=== PATIENT | male | born 1960 | race Two or more races ===

== ENCOUNTER 2018-11-28 08:17 | Inpatient (IN) | payer MEDICAID ==
[~2018-11-28] VITALS: Ht 170.2 cm; Wt 83.5 kg
[2018-11-28 09:01] LABS: Basophils # (auto) 0 uL; Eosinophils # (auto) 0.1 uL; Lymphocytes # (auto) 0.7 uL; Monocytes # (auto) 0.4 uL
[2018-11-28 09:14] LABS: INR 1.1 (0.9-1.15); Partial Thromboplastin Time 22.8 sec (23.64-32.05); Prothrombin Time 11.8 sec (9.06-12.60)
[2018-11-28 09:22] LABS: Albumin 2.8 g/dL (3.4-5.0); Calcium 7.5 mg/dL (8.5-10.1); Potassium 4.8 mmol/L (3.5-5.1)
[2018-11-28 09:23] LABS: Basophils % (auto) 0.5 % (0.0-2.0); Eosinophils % (auto) 2.4 % (0.0-7.0); Hematocrit 25.7 % (41.0-53.0); Hemoglobin 7.6 g/dL (13.5-17.5); Lymphocytes % (auto) 14.3 % (10.0-50.0); Mean Corpuscular Hgb Conc. 29.4 g/dL (32.0-36.0); Mean Corpuscular Volume 64.8 fL (80.0-100.0); Monocytes % (auto) 8.5 % (0.0-12.0); Neutrophils # (auto) 3.9 uL; Neutrophils % (auto) 74.3 % (37.0-80.0); Nucleated Red Blood Cells % 0.1 %; Platelet Count (auto) 62 10^3/uL (140-450); Red Blood Cells 3.97 10^6/uL (4.5-5.90); White Blood Cell 5.2 10^3/uL (4.4-10.8)
[2018-11-28 09:24] LABS: BUN/Creatinine Ratio 21.8
[2018-11-28 09:29] LABS: Bilirubin, Total 0.4 mg/dL (0.2-1.0)
[2018-11-28] MEDS ORDERED: PANTOPRAZOLE 40 MG/10 ML VIAL INJ IV ONE (11:00)
[2018-11-28] MEDS ORDERED: MORPHINE SULF INJ 2 MG/ML SYRINGE 1ML IV PRN (11:45)
[2018-11-28] MEDS ORDERED: HYDROcodone-ACET 5/325MG TAB PO PRN (11:45)
[2018-11-28] MEDS ORDERED: PANTOPRAZOLE 40 MG TAB PO ONE ×2 (11:45→22:00)
[2018-11-28] MEDS ORDERED: DEXTROSE (50%) 50ML SYRG IV PRN ×2 (11:45)
[2018-11-28] MEDS ORDERED: cefTRIAXone 1GM/50ML D5W 50 ML IV ONE (11:45)
[2018-11-28] MEDS ORDERED: FERROUS SULFATE 325 MG TAB PO ONE (11:45)
[2018-11-28] MEDS ORDERED: NITROGLYCERIN 0.4 MG SL TAB SL PRN (11:45)
[2018-11-28] MEDS ORDERED: ACCU-CHEK COMFORT CURVE STRIP VI SCH (12:00)
[2018-11-28] MEDS ORDERED: InsuLIN REG 1unit/0.01ml Soln (100units/ml) SC SCH (12:00)
[2018-11-28] MEDS: SODIUM CHLORIDE 0.9% 1,000 ML IV SCH ×2 (12:06→23:03)
[2018-11-28] MEDS: InsuLIN REG 1unit/0.01ml Soln (100units/ml) SC SCH ×3 (12:15→21:53)
[2018-11-28 12:28] LABS: Urine Bacteria NONE SEEN /hpf (None Seen); Urine Blood Negative /uL (Negative); Urine Specific Gravity 1.013 (1.001-1.035); Urine WBC <1 /hpf (0 - 3)
[2018-11-28 12:41] LABS: Alcohol, Urine < 3.0 mg/dL (0-5); Amphetamine Screen, Urine NEGATIVE (NEGATIVE); Barbiturate Scree,Urine NEGATIVE (NEGATIVE); Benzodiazephine Screen, Urine NEGATIVE (NEGATIVE); Cannabinoid Screen, Urine NEGATIVE (NEGATIVE); Cocaine Screen, Urine NEGATIVE (NEGATIVE); Opiate Scree,Urine NEGATIVE (NEGATIVE); Phencyclidine Screen, Urine NEGATIVE (NEGATIVE)
[2018-11-28] MEDS ORDERED: OCTREOTIDE ACETATE 100 MCG in SODIUM CHL 0.9% 50 ML IV ONE (13:15)
[2018-11-28] MEDS ORDERED: diphenhdrAMINE HCL 50 MG/1 ML VL ONE (13:36)
[2018-11-28] MEDS ORDERED: SODIUM CHLORIDE LOCK 10 ML ONE (13:36)
[2018-11-28] MEDS ORDERED: LIDOCAINE VISCOUS 2% 15ML UD ONE (13:36)
[2018-11-28] MEDS: fentaNYL CITRATE 100 MCG/2 ML VL ONE ×2 (13:45→13:49)
[2018-11-28] MEDS: MIDAZOLAM HCL 5 MG/ML-1ML VIAL ONE ×2 (13:45→13:49)
[2018-11-28 14:47] VITALS: BP 97/61
--- NOTE | 2018-11-28 14:55 | NUR ---
PT ADMITTE TO FLOOR VIA BED AND STAFF FROM POST OP NO DISTRESS NOTED. VITALS:98.0, HR 82, RR 16, 02 97, BP 92/60. PT REPORTS NO SOB. PT ORIENTED TO CALL LIGHT AND UNIT.
--- NOTE | 2018-11-28 14:57 | NUR ---
PT HAS GI BLEED, MODERATE AMOUNT OF BLOOD AND STOOL NOTED ON CHUCKS. POST OP NURSE PRESENT ANDND SAW BLOOD, SHE REPORTS SHE WILL REPORT GI BLEED TO DR KNOX. CALLED DR REEVES AND LEFT MESSAGE REPORTING PT HAS A GI BLEED, WILL CONTINUE TO MONITOR.
[2018-11-28 15:00] VITALS: BP 97/61
--- NOTE | 2018-11-28 15:03 | NUR ---
DR REEVES AT NURSING STATION, NOTIFIED PT HGB 7.6 AND PT HAS MODERATE AMOUNT OF LIQUID BLOODY STOOL COME OUT OF ANUS. DR REEVES AWARE. NEW ORDERS FOR REPEAT H AND H AT 5. IF HEMOGLOBIN BELOW 7, TRANSFUSE [address] KNOX, NOTIFIED PT HAS A GI BLEED. AWARE, ORDERS TO MONITOR FOR NOW.
[2018-11-28] MEDS ORDERED: SODIUM CHLORIDE 0.9% 2,000 ML IV ONE (15:15)
--- NOTE | 2018-11-28 15:16 | NUR ---
CHEYANNE REPORTS BP 92/60, DR REEVES NOTIFIED, NEW ORDERS FOR 2 LITER BOLUS.
--- NOTE | 2018-11-28 15:20 | NUR ---
PT IV WILL NOT FLUSH. DC'D IV. ATTEMPTED NEW IV USING STERILE TECHNIQUE TWICE. UNABLE TO GAIN ACCESS, WILL ASK ANOTHER NURSE. PT TOLERATED PROCEDURE WELL.
--- NOTE | 2018-11-28 17:00 | NUR ---
NEW IV INSERTED, LFA 20 GAUGE PLACED BY NURSE PABLITO LOZANO TOLERATED PROCEDURE WELL. WILL GIVE 2 L 0.9 NS BOLUS AND SANDOSTATIN.
--- NOTE | 2018-11-28 17:03 | NUR ---
CALLED [facility] PT REPORTS HE IS MISSING A WHITE BAG WITH HIS PHONE AND CLOTHES. [facility] REPORTS THEY TRANSFERRED PATIENT TO [facility] WITH ALL HIS BELONGINGS. CALLED [facility], NO ANSWER, LEFT MESSAGE REQUESTING PT BELONGINGS.
[2018-11-28 17:27] VITALS: BP_SYST 106; BP_SYST 92; BP_SYST 98; BP_DIAS 60; BP_DIAS 63; BP_DIAS 68
--- NOTE | 2018-11-28 18:00 | NUR ---
ORTHOSTATIC VITAL LAYING: HR 82, BP 111/74, 02 96 SITTING: HR 103, BP 126/72, 02 97 STANDING: HR 98, BP 115/69, 02 98 Addendum: 11/28/18 at 1950 by CHUCKY GALLEGOS RN NEW HGB 7.3 FROM 7.6, NIGHT NURSE AWARE TO MONITOR.
[2018-11-28] MEDS: ESOMEPRAZOLE 40 MG/5ml VIAL INJ IV SCH ×2 (18:23→21:52)
[2018-11-28] MEDS: ACCU-CHEK COMFORT CURVE STRIP VI SCH ×2 (18:24→21:52)
[2018-11-28 18:39] LABS: Hemoglobin 7.3 g/dL (13.5-17.5)
[2018-11-28 18:45] LABS: Hematocrit 24.3 % (41.0-53.0)
--- NOTE | 2018-11-28 19:20 | NUR ---
Opening Shift Note Received report from alo Burger RN. Assumed care of patient, alert and awake. No S/S of distress/SOB or pain. Instructed on POC and to call for assist PRN, will continue to monitor for changes Q1hr and PRN. Bed placed in lowest position, bed alarm turned on and call light within reach.
[2018-11-28 20:00] VITALS: BP 116/65
[2018-11-28] MEDS: OCTREOTIDE ACETATE 500 MCG in SODIUM CHL 0.9% 99 ML IV SCH ×2 (20:30→23:09)
[2018-11-28 21:30] VITALS: BP 116/65
[2018-11-29] VITALS (13 sets, daily range): BP systolic 95–131; BP diastolic 56–77
[2018-11-29 05:07] LABS: Basophils # (auto) 0 uL; Basophils % (auto) 1.1 % (0.0-2.0); Eosinophils # (auto) 0.2 uL; Eosinophils % (auto) 3.5 % (0.0-7.0); Hematocrit 24.3 % (41.0-53.0); Lymphocytes # (auto) 0.9 uL; Lymphocytes % (auto) 19.2 % (10.0-50.0); Mean Corpuscular Hemoglobin 18.7 pg (28.0-32.0); Mean Corpuscular Hgb Conc. 28.5 g/dL (32.0-36.0); Mean Corpuscular Volume 65.7 fL (80.0-100.0); Monocytes # (auto) 0.3 uL; Neutrophils # (auto) 3.1 uL; Neutrophils % (auto) 69.2 % (37.0-80.0); Nucleated Red Blood Cells % 0.1 %; Platelet Count (auto) 47 10^3/uL (140-450); White Blood Cell 4.5 10^3/uL (4.4-10.8)
[2018-11-29 05:08] LABS: Red Cell Distribution Width 22.9 % (11.8-14.3)
--- NOTE | 2018-11-29 05:19 | NUR ---
Critical Lab value Dr Jimenez paged and notified via [employer] regarding patient's critical lab value of hemoglobin of 7.0. Awaiting call back.
[2018-11-29 05:26] LABS: Albumin 3.1 g/dL (3.4-5.0); BUN/Creatinine Ratio 24.4; Calcium 7.7 mg/dL (8.5-10.1)
[2018-11-29 05:29] LABS: Bilirubin, Total 0.3 mg/dL (0.2-1.0); Total Protein 6.6 g/dL (6.4-8.2)
[2018-11-29] MEDS: SODIUM CHLORIDE 0.9% 1,000 ML IV SCH (05:56)
[2018-11-29] MEDS: ACCU-CHEK COMFORT CURVE STRIP VI SCH ×4 (06:16→22:47)
[2018-11-29] MEDS: InsuLIN REG 1unit/0.01ml Soln (100units/ml) SC SCH ×4 (06:51→22:00)
--- NOTE | 2018-11-29 07:37 | NUR ---
Assumed care of pt, awake and alert, no s&s of distress/sob or pain noted, instructed on poc and to call for assist prn, will continue to monitor for changes q1h and prn.
[2018-11-29] MEDS: OCTREOTIDE ACETATE 500 MCG in SODIUM CHL 0.9% 99 ML IV SCH ×2 (08:19→17:32)
--- NOTE | 2018-11-29 08:36 | NUR ---
Paged and left message to Dr. Jimenez re hemoglobin of 7.0 and hematocrit of 24.3.
[2018-11-29] MEDS: ESOMEPRAZOLE 40 MG/5ml VIAL INJ IV SCH (09:20)
[2018-11-29] MEDS: cefTRIAXone 1GM/50ML D5W 50 ML IV SCH (09:20)
--- NOTE | 2018-11-29 11:58 | NUR ---
Pt sleeping, no s&s of distress/sob or pain noted, will continue to monitor for changes q1h and prn.
--- NOTE | 2018-11-29 15:55 | NUR ---
Pt awake and alert, no s&s of distress/sob or pain noted, will continue to monitor for changes q1h and prn.
[2018-11-29] MEDS: SUCRALFATE 1 GM/10 ML ORAL SUSP PO SCH ×2 (16:31→22:40)
--- NOTE | 2018-11-29 19:30 | NUR ---
Opening Shift Note Assumed care of patient, awake and alert and oriented x 4. No S/S of distress/SOB dizziness or pain. Instructed on POC and to call for assist PRN, call light within reach, bed in lowest locked position bed rails up x 2, will continue to monitor for changes Q1hr and PRN.
[2018-11-29] MEDS: PANTOPRAZOLE 40 MG TAB PO SCH (22:40)
[2018-11-30 04:56] VITALS: BP_SYST 111; BP_SYST 117; BP_SYST 127; BP_DIAS 68; BP_DIAS 69
[2018-11-30] MEDS: OCTREOTIDE ACETATE 500 MCG in SODIUM CHL 0.9% 99 ML IV SCH (05:46)
[2018-11-30 06:25] LABS: Basophils # (auto) 0 uL; Lymphocytes % (auto) 20.8 % (10.0-50.0); Monocytes # (auto) 0.3 uL; Neutrophils # (auto) 2.7 uL
[2018-11-30 06:31] LABS: Basophils % (auto) 0.7 % (0.0-2.0); Eosinophils # (auto) 0.1 uL; Eosinophils % (auto) 3.7 % (0.0-7.0); Hematocrit 25.4 % (41.0-53.0); Hemoglobin 7.8 g/dL (13.5-17.5); Lymphocytes # (auto) 0.8 uL; Mean Corpuscular Hemoglobin 20.3 pg (28.0-32.0); Mean Corpuscular Hgb Conc. 30.6 g/dL (32.0-36.0); Mean Corpuscular Volume 66.3 fL (80.0-100.0); Monocytes % (auto) 8.1 % (0.0-12.0); Neutrophils % (auto) 66.7 % (37.0-80.0); Nucleated Red Blood Cells % 0.1 %; Platelet Count (auto) 54 10^3/uL (140-450); Red Blood Cells 3.84 10^6/uL (4.5-5.90)
[2018-11-30] MEDS: SUCRALFATE 1 GM/10 ML ORAL SUSP PO SCH ×2 (06:41→11:25)
[2018-11-30 06:45] LABS: Red Cell Distribution Width 25.7 % (11.8-14.3)
[2018-11-30] MEDS: InsuLIN REG 1unit/0.01ml Soln (100units/ml) SC SCH ×2 (06:46→11:32)
[2018-11-30] MEDS: ACCU-CHEK COMFORT CURVE STRIP VI SCH ×2 (06:46→11:33)
--- NOTE | 2018-11-30 07:21 | NUR ---
CLOSING NOTE Endorsed care to dayshift nurse. Patient is resting no s/s of distress/ SOB or pain, bed in lowest locked position side rails up x 2, call light within reach.
--- NOTE | 2018-11-30 07:25 | NUR ---
Opening Shift Note Assumed care of patient, awake and alert. No S/S of distress/SOB or pain or active bleeding. Instructed on POC-continue medications as ordered. Patient informed to call for assist PRN, will continue to monitor for changes Q1hr and PRN.
[2018-11-30 08:00] VITALS: BP 113/80
[2018-11-30 09:00] VITALS: BP 113/80
[2018-11-30] MEDS: PANTOPRAZOLE 40 MG TAB PO SCH (09:32)
[2018-11-30] MEDS: cefTRIAXone 1GM/50ML D5W 50 ML IV SCH (09:32)
[2018-11-30] MEDS ORDERED: FERROUS SULFATE 300 MG/5 ML ORAL LIQ PO SCH (10:00)
[2018-11-30 13:00] VITALS: BP 116/69
[2018-11-30 14:47] VITALS: BP 116/69
--- NOTE | 2018-11-30 14:49 | NUR ---
Nutrition Assessment Notes please see attached link for complete assessment Est. Needs based on BW (83 kg): 3679-6061 kcal (23-25 kcal/kgBW), 66-83 gms pro (0.8-1.0gms/kgBW r/t elev ammonia). Will continue to monitor pertinent labs and reassess nutrient need prn Addendum: 11/30/18 at [address] Amended: Links added.
--- NOTE | 2018-11-30 16:00 | NUR ---
Discharge Discharge instructions given as ordered. Encourage to follow up with PRIMARY MD and with GI as instructed. All questions and concerns addressed. Patient verbalized understanding. Patient is up to date with the flu vaccine. IV removed with catheter intact, pressure dressing applied. Telemetry unit returned to [facility]. Patient taken to vehicle via wheelchair with all personal belongings, accompanied by staff and family member. No distress noted at time of departure.
== END 2018-11-30 16:00 | disposition home or self-care (01) | DRG 242 ==
LOC: EDBD 08:17 → ER 08:17 → TELE 11:34 → TELE-EAST 14:47
PROVIDERS: ADMIT Hospitalist; ATTEND Hospitalist
PROC: 06L38CZ Occlusion of Esophageal Vein with Extraluminal Device, Via Natural or Artificial Opening Endoscopic (ICD-10-PCS; principal; 2018-11-28 13:30)
PROC: 30233N1 Transfusion of Nonautologous Red Blood Cells into Peripheral Vein, Percutaneous Approach (ICD-10-PCS; 2018-11-29)
DX: I85.11 Secondary esophageal varices with bleeding (principal); K74.60 Unspecified cirrhosis of liver; D62 Acute posthemorrhagic anemia; K20.9 Esophagitis, unspecified; E11.9 Type 2 diabetes mellitus without complications; F17.210 Nicotine dependence, cigarettes, uncomplicated; K57.30 Diverticulosis of large intestine without perforation or abscess without bleeding; Z79.899 Other long term (current) drug therapy; Z82.49 Family history of ischemic heart disease and other diseases of the circulatory system; Z86.19 Personal history of other infectious and parasitic diseases
CPT/HCPCS: 36415; 43244; 70450; 71045; 74176; 80053; 80307; 81001; 82140; 82270; 82550; 82962; 83036; 83880; 84484; 85014; 85018; 85025; 85610; 85730; 86850; 86900; 86901; 86920; 87086; 93005; 96365; 97163; G0378; J0696; J1815; J2250

== ENCOUNTER 2019-03-31 00:14 | Inpatient (IN) | payer MEDICAID ==
[2019-03-31] VITALS (14 sets, daily range): BP systolic 92–115; BP diastolic 53–72
[~2019-03-31] VITALS: Ht 170.2 cm; Wt 80.0 kg
[~2019-03-31 00:14] MED LIST: FER325T PO; FERR1TAB36 PO; OYST500T28 PO; PANT40TA2 PO; PRA25T PO; PROP60CA34 PO; SUCR1TAB38 PO; TRAZ100T2 PO
[2019-03-31 01:00] LABS: Mean Corpuscular Hemoglobin 22.4 pg (28.0-32.0); Mean Corpuscular Hgb Conc. 31.1 g/dL (32.0-36.0); Platelet Count (auto) 48 10^3/uL (140-450); Red Blood Cells 2.09 10^6/uL (4.5-5.90)
[2019-03-31 01:01] LABS: Red Cell Distribution Width 24.3 % (11.8-14.3)
[2019-03-31 01:04] LABS: Hemoglobin 4.7 g/dL (13.5-17.5)
[2019-03-31 01:05] LABS: Band Neutrophils % (manual) 0; Basophils % (manual) 0 (0.0-2.0); Blast Cells 0; Metamyelocytes % 0; Myelocytes % 0; Promyelocytes % 0; Reactive Lymphocytes 0
[2019-03-31 01:09] LABS: Albumin 3.1 g/dL (3.4-5.0); BUN/Creatinine Ratio 12.9; Calcium 7.9 mg/dL (8.5-10.1); Potassium 3.5 mmol/L (3.5-5.1)
[2019-03-31 01:14] LABS: Bilirubin, Total 0.3 mg/dL (0.2-1.0); Total Protein 6.5 g/dL (6.4-8.2)
[2019-03-31 02:03] LABS: Eosinophils % (manual) 1 (0-7); Lymphocytes % (manual) 15 (10.0-50.0); Monocytes % (manual) 4 (0-12)
[2019-03-31 02:34] LABS: Urine Bacteria NONE SEEN /hpf (None Seen); Urine Blood Negative /uL (Negative); Urine Specific Gravity 1.023 (1.001-1.035); Urine WBC <1 /hpf (0 - 3)
[2019-03-31] MEDS ORDERED: DEXTROSE (50%) 50ML SYRG IV PRN (05:15)
[2019-03-31] MEDS ORDERED: MORPHINE SULF INJ 2 MG/ML SYRINGE 1ML IV PRN (05:15)
[2019-03-31] MEDS ORDERED: ONDANSETRON HCL 4 MG/2 ML VIAL IV PRN (05:15)
[2019-03-31] MEDS ORDERED: NITROGLYCERIN 0.4 MG SL TAB SL PRN (05:15)
[2019-03-31] MEDS ORDERED: TEMAZEPAM 15 MG CAP PO PRN (05:15)
[2019-03-31] MEDS: ACCU-CHEK COMFORT CURVE STRIP VI SCH ×4 (06:08→23:28)
[2019-03-31] MEDS: InsuLIN REG 1unit/0.01ml Soln (100units/ml) SC SCH ×4 (06:12→23:28)
--- NOTE | 2019-03-31 06:30 | NUR ---
Admission Note Pt admitted to room 293-A in stable cond. Pt denies any CP or SOB at this time and No s/s of any distress noted. 2nd unit of PRBC's infusing upon arrival per Zoey RN report. No adverse reaction noted at this time. Pt oriented to room and procedures and POC discussed with pt. Pt verbalizes understanding. Bed is low , wheels are locked, and call light is with in reach.
[2019-03-31] MEDS: SUCRALFATE 1 GM TAB PO SCH ×4 (06:41→22:31)
[2019-03-31] MEDS ORDERED: PANTOPRAZOLE 40 MG TAB PO SCH (07:00)
--- NOTE | 2019-03-31 08:00 | NUR ---
Opening Shift Note Assumed care of patient, awake and alert. No S/S of distress/SOB or pain. Patient denies any shortness of breath or back pain, no transfusion reaction noted at this time. Will monitor patient closely. Instructed on POC and to call for assist PRN, will continue to monitor for changes Q1hr and PRN.
[2019-03-31] MEDS: PROPRANOLOL HCL 20 MG TAB PO SCH ×2 (10:00→22:32)
[2019-03-31 10:31] LABS: Hemoglobin 6.4 g/dL (13.5-17.5)
[2019-03-31] MEDS ORDERED: PANTOPRAZOLE 80 MG in SODIUM CHL 0.9% 60 ML IV SCH (11:00)
[2019-03-31] MEDS ORDERED: OCTREOTIDE ACETATE 500 MCG in SODIUM CHL 0.9% 99 ML IV SCH (11:00)
[2019-03-31] MEDS ORDERED: OCTREOTIDE ACETATE 100 MCG in SODIUM CHL 0.9% 50 ML IV ONE (14:00)
[2019-03-31 14:50] LABS: INR 0.96 (0.9-1.15)
--- NOTE | 2019-03-31 15:10 | NUR ---
Octreotide Did not received Octreotide until 1510. Started medication upon receipt.
[2019-03-31] MEDS: OCTREOTIDE ACETATE 500 MCG in SODIUM CHL 0.9% 99 ML IV SCH ×2 (15:25→23:27)
[2019-03-31 20:02] LABS: Hematocrit 23.9 % (41.0-53.0); Hemoglobin 7.6 g/dL (13.5-17.5)
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
[2019-03-31] MEDS: PANTOPRAZOLE 40 MG TAB PO SCH (22:31)
[2019-04-01 05:00] VITALS: BP 101/65
[2019-04-01] MEDS: InsuLIN REG 1unit/0.01ml Soln (100units/ml) SC SCH ×2 (06:00→12:00)
[2019-04-01] MEDS: SUCRALFATE 1 GM TAB PO SCH ×2 (06:03→11:30)
[2019-04-01] MEDS: ACCU-CHEK COMFORT CURVE STRIP VI SCH ×2 (06:03→12:00)
--- NOTE | 2019-04-01 06:31 | NUR ---
Ended both transfusions via meditech now. This RN was not present for the end of the Transfusions but either of the 2 RN's did not end the transfusion in Meditech.
[2019-04-01 06:47] LABS: Basophils # (auto) 0 uL; Eosinophils # (auto) 0.1 uL; Lymphocytes # (auto) 0.5 uL; Monocytes # (auto) 0.3 uL; Nucleated Red Blood Cells % 0.4 %; White Blood Cell 2.9 10^3/uL (4.4-10.8)
[2019-04-01 06:50] LABS: Basophils % (auto) 1.1 % (0.0-2.0); Eosinophils % (auto) 4.4 % (0.0-7.0); Hematocrit 24.4 % (41.0-53.0); Lymphocytes % (auto) 15.4 % (10.0-50.0); Mean Corpuscular Hemoglobin 24.5 pg (28.0-32.0); Mean Corpuscular Hgb Conc. 32.7 g/dL (32.0-36.0); Mean Corpuscular Volume 74.9 fL (80.0-100.0); Monocytes % (auto) 9.6 % (0.0-12.0); Neutrophils % (auto) 69.5 % (37.0-80.0); Platelet Count (auto) 48 10^3/uL (140-450); Red Blood Cells 3.26 10^6/uL (4.5-5.90)
[2019-04-01 06:55] LABS: Red Cell Distribution Width 22.1 % (11.8-14.3)
[2019-04-01 07:08] LABS: Calcium 7.8 mg/dL (8.5-10.1); Potassium 3.7 mmol/L (3.5-5.1)
[2019-04-01 07:09] LABS: BUN/Creatinine Ratio 8.4
[2019-04-01 07:23] LABS: Bilirubin, Total 0.6 mg/dL (0.2-1.0); Total Protein 6.4 g/dL (6.4-8.2)
--- NOTE | 2019-04-01 07:30 | NUR ---
OPENING SHIFT NOTE RECEIVED REPORT FROM [facility] NURSE, ASSUMED CARE OF PATIENT. PATIENT IS A&OX4 WITH NO C/O PAIN OR DISTRESS AT THIS TIME. PATIENT REFUSING EGD PROCEDURE SCHEDULED FOR TODAY, PATIENT EDUCATED FURTHER ON PROCEDURE AND CONTINUES TO REFUSE. PATIENT ALSO EDUCATED MICROELECTRONICS ASSEMBLER LIGHT USE PRN, PATIENT VERBALIZED UNDERSTANDING. CONTINUING TO MONITOR Q1 HR AND PRN
[2019-04-01 09:00] VITALS: BP 115/75
--- NOTE | 2019-04-01 09:15 | NUR ---
SURGICAL CALLED IN REGARDS TO PATIENTS EGD SCHEDULED, PATIENT REFUSING PROCEDURE, SURGICAL NURSE NOTIFIED, SURGICAL NURSE TO NOTIFY DR KNOX OF PATIENTS REFUSAL.
--- NOTE | 2019-04-01 09:24 | NUR ---
STRESS LAB CONTACTED STRESS LAB NOTIFIED MYSELF THAT NUCLEAR MEDICINE IS UNAVAILABLE ON THE WEEKEND AND PATIENTS STRESS TEST WOULD BE WEDNESDAY Addendum: 04/01/19 at 1041 by ANNMARIE NASCIMENTO RN RN NOTE FOR DIFFERENT PATIENT, NOT APPLICABLE FOR THIS PATIENT
[2019-04-01] MEDS: OCTREOTIDE ACETATE 500 MCG in SODIUM CHL 0.9% 99 ML IV SCH (09:51)
[2019-04-01] MEDS: PANTOPRAZOLE 40 MG TAB PO SCH (09:51)
[2019-04-01] MEDS: PROPRANOLOL HCL 20 MG TAB PO SCH (09:51)
--- NOTE | 2019-04-01 10:27 | NUR ---
MD AT BEDSIDE DR KNOX PRESENT AT PATIENTS BEDSIDE, EDUCATED PATIENT IN REGARDS TO PROCEDURE, PATIENT CONTINUES TO REFUSE
[2019-04-01 13:00] VITALS: BP 105/66
[2019-04-01 14:37] VITALS: BP 115/75
--- NOTE | 2019-04-01 14:53 | NUR ---
IV removal IV X 2 DC'd with clean sterile technique, catheter fully intact. Pressure dressing applied to site. Patient tolerated well.
--- NOTE | 2019-04-01 14:53 | NUR ---
TELE BOX REMOVED
--- NOTE | 2019-04-01 15:15 | NUR ---
PATIENT DISCHARGE PATIENT LEFT VIA WHEELCHAIR THROUGH EMERGENCY TO [facility]. PATIENT DENIES ANY PAIN OR DISTRESS, ALL BELONGINGS WITH PATIENT, PATIENT EDUCATED ON F/U CARE
== END 2019-04-01 15:15 | disposition home or self-care (01) | DRG 280 ==
LOC: EDBD 00:14 → ER 00:16 → TELE-WESTW 00:17
PROVIDERS: ADMIT Nurse Practitioner; ATTEND Hospitalist
PROC: 30233N1 Transfusion of Nonautologous Red Blood Cells into Peripheral Vein, Percutaneous Approach (ICD-10-PCS; principal; 2019-03-31)
DX: K70.30 Alcoholic cirrhosis of liver without ascites (principal); I85.11 Secondary esophageal varices with bleeding; D69.6 Thrombocytopenia, unspecified; I27.20 Pulmonary hypertension, unspecified; K76.6 Portal hypertension; D62 Acute posthemorrhagic anemia; E11.9 Type 2 diabetes mellitus without complications; K31.89 Other diseases of stomach and duodenum; B19.20 Unspecified viral hepatitis C without hepatic coma; F17.210 Nicotine dependence, cigarettes, uncomplicated; Z82.0 Family history of epilepsy and other diseases of the nervous system; Z82.49 Family history of ischemic heart disease and other diseases of the circulatory system; Z83.3 Family history of diabetes mellitus; Z79.899 Other long term (current) drug therapy; F10.10 Alcohol abuse, uncomplicated; Y90.9 Presence of alcohol in blood, level not specified
CPT/HCPCS: 36415; 71045; 80053; 81001; 82270; 82962; 84484; 85007; 85014; 85018; 85025; 85027; 85610; 86850; 86900; 86901; 86920; 93005; 93306; C9113; G0378; J1815

== ENCOUNTER 2019-08-29 01:42 | Inpatient (IN) | payer MEDICAID ==
[2019-08-29] VITALS (13 sets, daily range): BP systolic 91–133; BP diastolic 58–79
[~2019-08-29] VITALS: Ht 170.2 cm; Wt 75.3 kg
[~2019-08-29 01:42] MED LIST changes: -PRA25T PO; +PRAM0.252 PO; -TRAZ100T2 PO; +TRAZ100T3 PO
[2019-08-29] MEDS ORDERED: NOREPINEPHRINE 8 MG/250ML KIT 250 ML IV ONE (02:15)
[2019-08-29] MEDS ORDERED: NOREPINEPHRINE 8 MG/250ML KIT 250 ML IV SCH (02:32)
[2019-08-29 02:33] LABS: Basophils # (auto) 0 uL; Eosinophils # (auto) 0.2 uL; Hemoglobin 7.4 g/dL (13.5-17.5); Lymphocytes # (auto) 0.5 uL; Mean Corpuscular Hemoglobin 23.4 pg (28.0-32.0); Monocytes # (auto) 0.3 uL; Neutrophils # (auto) 1.8 uL; White Blood Cell 2.8 10^3/uL (4.4-10.8)
[2019-08-29 02:35] LABS: Basophils % (auto) 1.5 % (0.0-2.0); Eosinophils % (auto) 6.3 % (0.0-7.0); Hematocrit 24.1 % (41.0-53.0); Lymphocytes % (auto) 17.9 % (10.0-50.0); Mean Corpuscular Hgb Conc. 30.8 g/dL (32.0-36.0); Mean Corpuscular Volume 76.1 fL (80.0-100.0); Monocytes % (auto) 11.3 % (0.0-12.0); Nucleated Red Blood Cells % 0.1 %; Platelet Count (auto) 62 10^3/uL (140-450); Red Blood Cells 3.16 10^6/uL (4.5-5.90)
[2019-08-29 02:37] LABS: Red Cell Distribution Width 21.1 % (11.8-14.3)
[2019-08-29] MEDS ORDERED: SODIUM CHLORIDE 0.9% 2,000 ML IV ONE (02:45)
[2019-08-29 02:52] LABS: Lactic Acid w/Reflex 2.6 mmol/L (0.4-2.0)
[2019-08-29 02:59] LABS: INR 1.16 (0.9-1.15); Partial Thromboplastin Time 23.9 sec (23.64-32.05)
[2019-08-29 03:19] LABS: Albumin 2.8 g/dL (3.4-5.0); Amylase 23 U/L (25-115); Anion Gap 5 (5-15); BUN/Creatinine Ratio 13.8; Blood Alcohol < 3.0 mg/dL (0-5); Blood Urea Nitrogen 12 mg/dL (7-18); Calcium 7.7 mg/dL (8.5-10.1); Carbon Dioxide 24 mmol/L (21-32); Chloride 110 mmol/L (98-107); GFR African American 115 mL/min; GFR Non-African American 95 mL/min; Glucose 274 mg/dL (74-106); Lipase 140 U/L (73-393); Magnesium 1.7 mg/dL (1.6-2.6); Potassium 3.8 mmol/L (3.5-5.1); Sodium 139 mmol/L (136-145)
[2019-08-29 03:24] LABS: Alanine Aminotransferase 32 U/L (16-61); Alkaline Phosphatase 156 U/L (45-117); Aspartate Aminotransferase 43 U/L (15-37); Bilirubin, Total 0.4 mg/dL (0.2-1.0); Total Protein 6.1 g/dL (6.4-8.2)
[2019-08-29] MEDS ORDERED: IOHEXOL 300 MG/ML 100ML BOTTLE IJ ONE (04:15)
[2019-08-29 06:02] LABS: Urine WBC None Seen /hpf (0 - 3)
[2019-08-29 06:19] LABS: Urine Bacteria NONE SEEN /hpf (None Seen); Urine Blood Negative /uL (Negative); Urine Specific Gravity 1.025 (1.001-1.035)
[2019-08-29 10:30] LABS: Basophils # (auto) 0 uL; Basophils % (auto) 0.8 % (0.0-2.0); Eosinophils # (auto) 0.1 uL; Hemoglobin 9.4 g/dL (13.5-17.5); Monocytes # (auto) 0.2 uL; Neutrophils # (auto) 1.9 uL; Nucleated Red Blood Cells % 0.1 %; Red Blood Cells 3.69 10^6/uL (4.5-5.90)
[2019-08-29 10:33] LABS: Eosinophils % (auto) 2.3 % (0.0-7.0); Hematocrit 28.8 % (41.0-53.0); Lymphocytes # (auto) 0.3 uL; Lymphocytes % (auto) 10.2 % (10.0-50.0); Mean Corpuscular Hemoglobin 25.6 pg (28.0-32.0); Mean Corpuscular Hgb Conc. 32.8 g/dL (32.0-36.0); Mean Corpuscular Volume 78.1 fL (80.0-100.0); Monocytes % (auto) 8.6 % (0.0-12.0); Neutrophils % (auto) 78.1 % (37.0-80.0); Platelet Count (auto) 52 10^3/uL (140-450); White Blood Cell 2.5 10^3/uL (4.4-10.8)
[2019-08-29] MEDS ORDERED: MORPHINE SULF INJ 2 MG/ML SYRINGE 1ML IV PRN (16:00)
[2019-08-29] MEDS ORDERED: PROMETHAZINE HCL 25 MG/ML 1ML IV PRN (16:00)
[2019-08-29] MEDS ORDERED: hydrALAZINE HCL 20 MG/ML VL IV PRN (16:00)
[2019-08-29] MEDS ORDERED: ACETAMINOPHEN 325 MG TAB PO PRN (16:00)
[2019-08-29] MEDS ORDERED: NITROGLYCERIN 0.4 MG SL TAB SL PRN (16:00)
[2019-08-29] MEDS ORDERED: SODIUM CHLORIDE 0.9% 1,000 ML, SODIUM CHL 0.9% 1,000 ML IV ONE ×2 (16:00)
[2019-08-29 17:49] LABS: Albumin 3.1 g/dL (3.4-5.0); Calcium 8.2 mg/dL (8.5-10.1); Potassium 4.1 mmol/L (3.5-5.1)
[2019-08-29 17:54] LABS: BUN/Creatinine Ratio 32.4; Bilirubin, Total 0.6 mg/dL (0.2-1.0); Total Protein 6.8 g/dL (6.4-8.2)
[2019-08-29] MEDS ORDERED: traZODone HCL 50 MG TAB PO SCH ×2 (18:00→22:00)
[2019-08-29] MEDS: FERROUS SULFATE 325 MG TAB PO SCH (18:20)
[2019-08-29] MEDS: SUCRALFATE 1 GM TAB PO SCH (18:20)
[2019-08-29] MEDS ORDERED: FERROUS SULFATE PO SCH (22:00)
[2019-08-29] MEDS: PROPRANOLOL HCL 20 MG TAB PO SCH (22:03)
[2019-08-29] MEDS: PANTOPRAZOLE 40 MG TAB PO SCH (22:04)
[2019-08-29] MEDS: CALCIUM CARB 500 MG CHEW TAB PO SCH (22:04)
[2019-08-30 05:00] VITALS: BP_SYST 104; BP_SYST 111; BP_SYST 112; BP_DIAS 59; BP_DIAS 65; BP_DIAS 66
[2019-08-30] MEDS: CALCIUM CARB 500 MG CHEW TAB PO SCH ×2 (05:38→18:17)
[2019-08-30 05:51] LABS: Basophils # (auto) 0 uL; Eosinophils # (auto) 0.1 uL; Hemoglobin 9.4 g/dL (13.5-17.5); Lymphocytes # (auto) 0.4 uL; Monocytes # (auto) 0.4 uL; Red Blood Cells 3.72 10^6/uL (4.5-5.90); White Blood Cell 4.9 10^3/uL (4.4-10.8)
[2019-08-30 05:53] LABS: Basophils % (auto) 0.7 % (0.0-2.0); Eosinophils % (auto) 1.6 % (0.0-7.0); Hematocrit 28.9 % (41.0-53.0); Lymphocytes % (auto) 7.9 % (10.0-50.0); Mean Corpuscular Hemoglobin 25.3 pg (28.0-32.0); Mean Corpuscular Hgb Conc. 32.6 g/dL (32.0-36.0); Mean Corpuscular Volume 77.6 fL (80.0-100.0); Monocytes % (auto) 8.8 % (0.0-12.0); Neutrophils # (auto) 3.9 uL; Platelet Count (auto) 56 10^3/uL (140-450)
[2019-08-30 06:07] LABS: Calcium 8.5 mg/dL (8.5-10.1); Potassium 3.5 mmol/L (3.5-5.1)
[2019-08-30 06:10] LABS: BUN/Creatinine Ratio 25.7; Bilirubin, Total 0.5 mg/dL (0.2-1.0); Total Protein 6.9 g/dL (6.4-8.2)
[2019-08-30 06:37] LABS: Red Cell Distribution Width 22.1 % (11.8-14.3)
[2019-08-30] MEDS: SUCRALFATE 1 GM TAB PO SCH ×3 (08:33→18:38)
[2019-08-30] MEDS: FERROUS SULFATE 325 MG TAB PO SCH ×2 (08:33→18:39)
[2019-08-30 08:57] VITALS: BP 109/64
[2019-08-30] MEDS: PANTOPRAZOLE 40 MG TAB PO SCH (09:25)
[2019-08-30] MEDS: PROPRANOLOL HCL 20 MG TAB PO SCH (09:26)
[2019-08-30] MEDS ORDERED: FERROUS SULFATE 325 MG TAB PO SCH (10:00)
[2019-08-30] MEDS ORDERED: levoFLOXacin 500MG 100 ML IV SCH (12:00)
[2019-08-30 12:23] VITALS: BP 105/67
[2019-08-30] MEDS ORDERED: metroNIDAZOLE 500MG/100ML 100 ML IV SCH (14:00)
[2019-08-30 16:43] VITALS: BP 100/52
[2019-08-30] MEDS ORDERED: METR500T PO (17:00)
[2019-08-30] MEDS ORDERED: MUPI2OIN2 NAS (17:00)
[2019-08-30] MEDS ORDERED: LEVO500T21 PO (17:00)
[2019-08-30 18:03] VITALS: BP 109/64
== END 2019-08-30 20:07 | disposition home health service (06) | DRG 204 ==
LOC: EDBD 01:42 → ER 01:42 → TELE 01:43 → TELE-CENTR 18:43
PROVIDERS: ADMIT Internal Medicine; ATTEND Internal Medicine
PROC: 30233N1 Transfusion of Nonautologous Red Blood Cells into Peripheral Vein, Percutaneous Approach (ICD-10-PCS; principal; 2019-08-29)
DX: R55 Syncope and collapse (principal); I95.89 Other hypotension; K76.6 Portal hypertension; R18.8 Other ascites; R16.2 Hepatomegaly with splenomegaly, not elsewhere classified; D50.0 Iron deficiency anemia secondary to blood loss (chronic); E11.9 Type 2 diabetes mellitus without complications; E86.0 Dehydration; K29.80 Duodenitis without bleeding; F17.210 Nicotine dependence, cigarettes, uncomplicated; K74.69 Other cirrhosis of liver; K21.9 Gastro-esophageal reflux disease without esophagitis; G47.00 Insomnia, unspecified; F32.9 Major depressive disorder, single episode, unspecified; Z81.8 Family history of other mental and behavioral disorders; Z79.899 Other long term (current) drug therapy; Z82.49 Family history of ischemic heart disease and other diseases of the circulatory system; Z83.3 Family history of diabetes mellitus; Z22.322 Carrier or suspected carrier of Methicillin resistant Staphylococcus aureus; Z82.0 Family history of epilepsy and other diseases of the nervous system; Z85.05 Personal history of malignant neoplasm of liver
CPT/HCPCS: 36415; 36430; 70450; 70551; 71260; 74177; 80053; 80320; 81001; 82140; 82150; 83605; 83690; 83735; 84484; 85025; 85610; 85730; 86850; 86900; 86901; 86920; 87081; 93005; 93306; 99291; G0378; J1956; J3490

== ENCOUNTER → 2019-12-26 | Emergency (ER) | payer MEDICAID ==
[2019-12-26] VITALS (13 sets, daily range): BP systolic 102–126; BP diastolic 60–76
[~2019-12-26] VITALS: Ht 170.2 cm; Wt 63.5 kg
[~2019-12-26] MED LIST changes: +ACCU-CHEK COMFORT CURVE STRIP VI SCH; +BLOOKIT79 XX; +CIP500T PO; +DEXTROSE (50%) 50ML SYRG IV PRN; +HYDR-392 PO; +INSULIN LANTUS (GLARGINE) 1 /0.01ml (100units/ml) SC ONE; +INSULIN LANTUS (GLARGINE) 1 /0.01ml (100units/ml) SC SCH; +InsuLIN R (HUMAN) 100 UNITS in SODIUM CHL 0.9% 99 ML IV SCH; +InsuLIN REG 1unit/0.01ml Soln (100units/ml) SC SCH; +LEVO500T21 PO; +METR500T PO; +MORPHINE SULF INJ 2 MG/ML SYRINGE 1ML IV PRN; +MUPI2OIN2 NAS; +NITROGLYCERIN 0.4 MG SL TAB SL PRN; +PANT40T PO; +PANTOPRAZOLE 40 MG/10 ML VIAL INJ IV SCH; +PROMETHAZINE HCL 25 MG/ML 1ML IV PRN; +SOD CHL 0.9%/ KCL 20MEQ 1,000 ML IV SCH; +SODIUM CHLORIDE 0.9% 1,000 ML IV ONE; +SODIUM CHLORIDE 0.9% 1,000 ML IV SCH; +SUCR1TAB22 PO; -SUCR1TAB38 PO; +levoFLOXacin 500MG 100 ML IV ONE; +levoFLOXacin 500MG 100 ML IV SCH; +metroNIDAZOLE 500MG/100ML 100 ML IV SCH
[2019-12-26 09:02] LABS: Mean Corpuscular Hemoglobin 19.8 pg (28.0-32.0)
[2019-12-26 09:03] LABS: Hematocrit 22.6 % (41.0-53.0); Mean Corpuscular Hgb Conc. 27.9 g/dL (32.0-36.0); Mean Corpuscular Volume 70.9 fL (80.0-100.0); Platelet Count (auto) 217 10^3/uL (140-450); Red Blood Cells 3.19 10^6/uL (4.5-5.90)
[2019-12-26 09:06] LABS: Red Cell Distribution Width 22.5 % (11.8-14.3)
[2019-12-26 09:11] LABS: Band Neutrophils % (manual) 0; Basophils % (manual) 0 (0.0-2.0); Blast Cells 0; Hemoglobin 6.3 g/dL (13.5-17.5); Promyelocytes % 0; Reactive Lymphocytes 0
[2019-12-26 09:21] LABS: Albumin 2.7 g/dL (3.4-5.0); Calcium 8.8 mg/dL (8.5-10.1); Potassium 4.2 mmol/L (3.5-5.1)
[2019-12-26 09:27] LABS: BUN/Creatinine Ratio 26.9; Bilirubin, Total 0.6 mg/dL (0.2-1.0)
[2019-12-26 09:39] LABS: Urine Bacteria NONE SEEN /hpf (None Seen); Urine Blood Negative /uL (Negative); Urine Specific Gravity 1.022 (1.001-1.035); Urine WBC 1 /hpf (0 - 3)
[2019-12-26 09:54] LABS: Lymphocytes % (manual) 6 (10.0-50.0); Monocytes % (manual) 5 (0-12)
[2019-12-26 09:55] LABS: Eosinophils % (manual) 15 (0-7); Metamyelocytes % 1; Myelocytes % 2
[2019-12-26] MEDS: SODIUM CHLORIDE 0.9% 1,000 ML IV SCH ×2 (10:13→12:47)
[2019-12-26] MEDS: ACCU-CHEK COMFORT CURVE STRIP VI SCH ×5 (10:36→16:32)
--- NOTE | 2019-12-26 11:02 | NUR ---
Respiratory note: DR MORGAN READ BACK CRITICAL ABG VALUES. NO FURTHER RESPIRATORY INTERVENTION INDICATED.
[2019-12-26 13:13] LABS: INR 1.13 (0.9-1.15)
[2019-12-26 15:23] LABS: BUN/Creatinine Ratio 26.3; Calcium 7.6 mg/dL (8.5-10.1); Potassium 4.2 mmol/L (3.5-5.1)
[2019-12-26 18:45] LABS: Amphetamine Screen, Urine NEGATIVE (NEGATIVE); Barbiturate Scree,Urine NEGATIVE (NEGATIVE); Benzodiazephine Screen, Urine NEGATIVE (NEGATIVE); Cannabinoid Screen, Urine NEGATIVE (NEGATIVE); Cocaine Screen, Urine NEGATIVE (NEGATIVE); Opiate Scree,Urine NEGATIVE (NEGATIVE); Phencyclidine Screen, Urine NEGATIVE (NEGATIVE)
[2019-12-26 18:47] LABS: Alcohol, Urine < 3.0 mg/dL (0-10)
[2019-12-26 19:02] LABS: Hematocrit 26.2 % (41.0-53.0); Hemoglobin 7.6 g/dL (13.5-17.5); Mean Corpuscular Hgb Conc. 29.2 g/dL (32.0-36.0); Platelet Count (auto) 150 10^3/uL (140-450); Red Blood Cells 3.63 10^6/uL (4.5-5.90); White Blood Cell 5.1 10^3/uL (4.4-10.8)
[2019-12-26 19:04] LABS: Red Cell Distribution Width 21.5 % (11.8-14.3)
[2019-12-26 19:06] LABS: Basophils % (manual) 0 (0.0-2.0); Blast Cells 0; Metamyelocytes % 0; Promyelocytes % 0; Reactive Lymphocytes 0
[2019-12-26 19:20] LABS: Calcium 8.1 mg/dL (8.5-10.1); Potassium 3.9 mmol/L (3.5-5.1)
[2019-12-26 19:22] LABS: BUN/Creatinine Ratio 25.5
[2019-12-26 19:29] LABS: Band Neutrophils % (manual) 1; Eosinophils % (manual) 4 (0-7); Lymphocytes % (manual) 7 (10.0-50.0); Monocytes % (manual) 4 (0-12); Myelocytes % 1
== END | disposition left against medical advice (07) ==
LOC: EDUNIT# 08:33 → ER 08:34 → EDBD 08:34 → UNDOADMIN 08:35 → TELE 08:35
DX: E11.10 Type 2 diabetes mellitus with ketoacidosis without coma (principal); K74.60 Unspecified cirrhosis of liver; D64.9 Anemia, unspecified; E86.0 Dehydration; E46 Unspecified protein-calorie malnutrition; F17.210 Nicotine dependence, cigarettes, uncomplicated; Z79.899 Other long term (current) drug therapy; Z68.21 Body mass index [BMI] 21.0-21.9, adult
CPT/HCPCS: 36415; 36430; 36600; 70450; 74176; 80048; 80053; 80307; 81001; 82010; 82140; 82805; 82962; 83735; 83930; 84484; 85007; 85027; 85610; 86850; 86900; 86901; 86920; 93005; 96361; 96365; 96366; 96368; 96372; 96375; 99291; J1815; J1956; J3490; P9016

== ENCOUNTER 2019-12-31 11:04 | Inpatient (IN) | payer MEDICAID ==
[2019-12-31] VITALS (21 sets, daily range): BP systolic 83–103; BP diastolic 52–62
[~2019-12-31] VITALS: Ht 172.7 cm; Wt 69.4 kg
[~2019-12-31 11:04] MED LIST changes: -ACCU-CHEK COMFORT CURVE STRIP VI SCH; -BLOOKIT79 XX; -CIP500T PO; -DEXTROSE (50%) 50ML SYRG IV PRN; -HYDR-392 PO; -INSULIN LANTUS (GLARGINE) 1 /0.01ml (100units/ml) SC ONE; -INSULIN LANTUS (GLARGINE) 1 /0.01ml (100units/ml) SC SCH; -InsuLIN R (HUMAN) 100 UNITS in SODIUM CHL 0.9% 99 ML IV SCH; -InsuLIN REG 1unit/0.01ml Soln (100units/ml) SC SCH; -MORPHINE SULF INJ 2 MG/ML SYRINGE 1ML IV PRN; -NITROGLYCERIN 0.4 MG SL TAB SL PRN; -PANT40T PO; -PANTOPRAZOLE 40 MG/10 ML VIAL INJ IV SCH; -PROMETHAZINE HCL 25 MG/ML 1ML IV PRN; -SOD CHL 0.9%/ KCL 20MEQ 1,000 ML IV SCH; -SODIUM CHLORIDE 0.9% 1,000 ML IV ONE; -SODIUM CHLORIDE 0.9% 1,000 ML IV SCH; -levoFLOXacin 500MG 100 ML IV ONE; -levoFLOXacin 500MG 100 ML IV SCH; -metroNIDAZOLE 500MG/100ML 100 ML IV SCH
[2019-12-31 12:01] LABS: Eosinophils # (auto) 0.3 10 ^3/uL (0-0.8); Monocytes # (auto) 0.4 10 ^3/uL (0-1.3); Neutrophils % (auto) 82.5 % (37.0-80.0); Nucleated Red Blood Cells % 0.1 %
[2019-12-31 12:03] LABS: Basophils # (auto) 0.1 10 ^3/uL (0-0.2); Basophils % (auto) 0.8 % (0.0-2.0); Hematocrit 15.7 % (41.0-53.0); Lymphocytes # (auto) 0.6 10 ^3/uL (0.4-5.4); Lymphocytes % (auto) 7.2 % (10.0-50.0); Mean Corpuscular Hemoglobin 21.6 pg (28.0-32.0); Mean Corpuscular Volume 69.8 fL (80.0-100.0); Monocytes % (auto) 5.5 % (0.0-12.0); Neutrophils # (auto) 6.3 10 ^3/uL (1.6-8.6); Platelet Count (auto) 147 10^3/uL (140-450); Red Blood Cells 2.25 10^6/uL (4.5-5.90); White Blood Cell 7.7 10^3/uL (4.4-10.8)
[2019-12-31 12:06] LABS: Red Cell Distribution Width 22.8 % (11.8-14.3)
[2019-12-31 12:10] LABS: Hemoglobin 4.9 g/dL (13.5-17.5)
[2019-12-31 12:22] LABS: BUN/Creatinine Ratio 36.7; Calcium 7.3 mg/dL (8.5-10.1); Potassium 3.1 mmol/L (3.5-5.1)
[2019-12-31 12:24] LABS: Bilirubin, Total 0.4 mg/dL (0.2-1.0); Total Protein 6.1 g/dL (6.4-8.2)
[2019-12-31] MEDS ORDERED: SODIUM CHLORIDE 0.9% 1,000 ML IVB ONE (12:41)
[2019-12-31] MEDS ORDERED: PANTOPRAZOLE 40 MG/10 ML VIAL INJ IV ONE ×2 (12:45→16:45)
[2019-12-31] MEDS ORDERED: MORPHINE SULF INJ 2 MG/ML SYRINGE 1ML IV ONE (13:00)
[2019-12-31] MEDS ORDERED: ONDANSETRON HCL 4 MG/2 ML VIAL IV ONE (13:00)
[2019-12-31 13:44] LABS: INR 1.13 (0.9-1.15); Partial Thromboplastin Time 26.3 sec (23.64-32.05)
[2019-12-31 13:52] LABS: Magnesium 1.6 mg/dL (1.6-2.6)
[2019-12-31] MEDS ORDERED: PHYTONADIONE (VIT K)10 MG/ML 1ML VIAL SUBCUT ONE (16:45)
[2019-12-31] MEDS ORDERED: SODIUM CHL 0.9% IV ONE (16:45)
[2019-12-31] MEDS ORDERED: FUROSEMIDE IV ONE (16:45)
[2019-12-31] MEDS ORDERED: PANTOPRAZOLE 40mg/50ML NS AE 50 ML IV ONE (16:45)
[2019-12-31] MEDS ORDERED: PHYTONADIONE (VIT K)10 MG/ML 1ML VIAL IV ONE (17:45)
[2019-12-31] MEDS ORDERED: FUROSEMIDE 20 MG/2 ML VIAL IV ONE (17:45)
[2019-12-31] MEDS: InsuLIN REG 1unit/0.01ml Soln (100units/ml) SC SCH (18:00)
[2019-12-31] MEDS: ACCU-CHEK COMFORT CURVE STRIP VI SCH (18:00)
[2019-12-31] MEDS ORDERED: phytonadione 5 MG in SODIUM CHL 0.9% 50 ML IV ONE (18:00)
[2019-12-31 18:55] LABS: Urine Bacteria NONE SEEN /hpf (None Seen); Urine Blood Negative /uL (Negative); Urine Hyaline Cast FEW /lpf (0 - 2); Urine Specific Gravity 1.019 (1.001-1.035); Urine WBC 1 /hpf (0 - 3)
[2019-12-31] MEDS ORDERED: POTASSIUM CHL 20 Meq TABLET PO ONE (19:00)
--- NOTE | 2019-12-31 19:55 | NUR ---
REPORT RECEIVED FROM BLAKE
--- NOTE | 2019-12-31 19:58 | NUR ---
RECEIVED FROM ED TO [facility] ROOM 264 RECEIVED PT BY BED ON HEMODYNAMIC MONITOR WITH RN AT THE BEDSIDE. WILL TAKE OVER THE CARES, COMPLETE ASSESSMENTS.
--- NOTE | 2019-12-31 21:26 | NUR ---
TRANSFUSING BLOOD OBTAINED CONSENT, STARTED BLOOD TRANSFUSION.
[2019-12-31 21:39] LABS: Basophils # (auto) 0 10 ^3/uL (0-0.2); Eosinophils # (auto) 0.5 10 ^3/uL (0-0.8); Nucleated Red Blood Cells % 0.1 %; Platelet Count (auto) 124 10^3/uL (140-450); White Blood Cell 5.6 10^3/uL (4.4-10.8)
[2019-12-31 21:41] LABS: Basophils % (auto) 0.4 % (0.0-2.0); Eosinophils % (auto) 9.1 % (0.0-7.0); Lymphocytes # (auto) 0.6 10 ^3/uL (0.4-5.4); Lymphocytes % (auto) 10.1 % (10.0-50.0); Mean Corpuscular Hemoglobin 23.9 pg (28.0-32.0); Mean Corpuscular Hgb Conc. 31.5 g/dL (32.0-36.0); Mean Corpuscular Volume 75.9 fL (80.0-100.0); Monocytes # (auto) 0.6 10 ^3/uL (0-1.3); Monocytes % (auto) 10.1 % (0.0-12.0); Neutrophils # (auto) 3.9 10 ^3/uL (1.6-8.6); Neutrophils % (auto) 70.3 % (37.0-80.0); Red Blood Cells 2.76 10^6/uL (4.5-5.90)
[2019-12-31 21:47] LABS: Hemoglobin 6.6 g/dL (13.5-17.5)
--- NOTE | 2019-12-31 22:56 | NUR ---
PT SITTING IN CHAIR TOLERATED TRANSFER WELL WATCHING TV
[2020-01-01] VITALS (39 sets, daily range): BP systolic 79–129; BP diastolic 40–75
--- NOTE | 2020-01-01 00:33 | NUR ---
UNABLE TO PROVIDE MEDICATION RECONCILIATION STATES, THAT HIS SON (NICKI TURK) AND HIS (RUI) WOULD NOT KNOW WHICH MEDICATIONS HE IS TAKING HIS PHARMACY: [facility] (PER PT THEY DELIVER MEDICATIONS)
[2020-01-01 01:42] LABS: Hematocrit 21.9 % (41.0-53.0)
--- NOTE | 2020-01-01 01:45 | NUR ---
PAGED HOSPITALIST REGARDING HBG 7.0 AT THIS POINT PT ALREADY RECEIVED 3 UNITS OF BLOOD
--- NOTE | 2020-01-01 01:51 | NUR ---
HOSPITALIST RETURNED CALL PER MD RECHECKING H/H AT 0600
[2020-01-01 03:28] LABS: Hematocrit 22.8 % (41.0-53.0); Hemoglobin 7.3 g/dL (13.5-17.5)
[2020-01-01 03:43] LABS: BUN/Creatinine Ratio 25.9; Calcium 7.5 mg/dL (8.5-10.1); Potassium 3.4 mmol/L (3.5-5.1)
--- NOTE | 2020-01-01 04:03 | NUR ---
[facility] HOSPITALIST REGARDING K 3.4 AND HGB 7.3 RECEIVED NEW ORDERS OF 40MEQ IV FOR POTASSIUM NO NEW ORDERS FOR HGB OF 7.3
[2020-01-01] MEDS: POTASSIUM CHL 20MEQ/100ML 100 ML IV SCH ×2 (04:25→08:37)
[2020-01-01] MEDS: ACCU-CHEK COMFORT CURVE STRIP VI SCH ×4 (05:55→18:05)
[2020-01-01] MEDS: InsuLIN REG 1unit/0.01ml Soln (100units/ml) SC SCH ×4 (05:57→18:00)
--- NOTE | 2020-01-01 06:13 | NUR ---
TWO DARK MAROON COLOR LIQUID STOOLS
--- NOTE | 2020-01-01 07:15 | NUR ---
LABS WERE NOT DRAWN FOR 0600 CALLED LAB, PLACED NEW STAT H/H ORDER.
[2020-01-01 08:01] LABS: Hematocrit 24.4 % (41.0-53.0)
[2020-01-01 08:03] LABS: Hemoglobin 7.6 g/dL (13.5-17.5)
[2020-01-01] MEDS ORDERED: SODIUM CHLORIDE LOCK 10 ML ONE (11:34)
[2020-01-01] MEDS ORDERED: FLUMAZENIL 0.1 MG/ML INJ 10ML MDV IV ONE (11:34)
[2020-01-01] MEDS ORDERED: NALOXONE HCL 0.4 MG/ML VIAL ONE (11:34)
[2020-01-01] MEDS ORDERED: diphenhdrAMINE HCL 50 MG/1 ML VL ONE (11:35)
[2020-01-01] MEDS ORDERED: LIDOCAINE VISCOUS 2% 15ML UD ONE (11:35)
[2020-01-01] MEDS: MIDAZOLAM HCL 5 MG/ML-1ML VIAL ONE ×2 (12:20→12:27)
[2020-01-01] MEDS: fentaNYL CITRATE 100 MCG/2 ML VL ONE ×2 (12:20→12:27)
[2020-01-01] MEDS ORDERED: OCTREOTIDE ACETATE 100 MCG in SODIUM CHL 0.9% 50 ML IV ONE (12:45)
[2020-01-01] MEDS: OCTREOTIDE ACETATE 500 MCG in SODIUM CHL 0.9% 99 ML IV SCH ×2 (15:13→22:45)
[2020-01-01 16:16] LABS: Hematocrit 23.8 % (41.0-53.0); Hemoglobin 7.3 g/dL (13.5-17.5)
--- NOTE | 2020-01-01 16:40 | NUR ---
CALLED Joseline LY ORDER TO TRANSFUSE 2 UNITS OF PRBCS AND IV LASIX 20MG IN BETWEEN TRANSFUSION. KEEP Q6 LAB MONITORING.
[2020-01-01] MEDS ORDERED: FUROSEMIDE 20 MG/2 ML VIAL IV ONE (16:45)
--- NOTE | 2020-01-01 17:09 | NUR ---
CALLED BLOOD BANK 2 UNITS WILL BE READY BY 1724, WILL CALL BACK TO CONFIRM PICKUP.
--- NOTE | 2020-01-01 19:31 | NUR ---
BLOOD PRODUCT INFILTRATED STOPPED INFUSION IMMEDIATELY, PT REPORTS NO PAIN, REMOVED IV LINE, PT TOLERATED WELL. SKIN WARM TO TOUCH, COLOR IS SAME SURROUNDING TISSUE.
--- NOTE | 2020-01-01 19:47 | NUR ---
ENDORSED CARE TO NOC RN PT RESTING WITH BREATHING EVEN AND UNLABORED. NO DISTRESS NOTED. VSS.
--- NOTE | 2020-01-01 20:44 | NUR ---
IV removal IV DC'd 18G IV ON LEFT WRIST with clean sterile technique, catheter fully intact. Pressure dressing applied to site. Patient tolerated well.
--- NOTE | 2020-01-01 20:55 | NUR ---
IV insertion IV access obtained, via clean sterile technique by inserting 20 gauge catheter at LEFT FOREARM after 2 attempt(s). IV secured properly. No trauma to site. Patient tolerated well.
--- NOTE | 2020-01-01 21:10 | NUR ---
IV insertion IV access obtained, via clean sterile technique by inserting 20 gauge catheter at LEFT WRIST after 1 attempt(s). IV secured properly. No trauma to site. Patient tolerated well. INSERTED BY FRANKIE COLIN
[2020-01-01] MEDS: PANTOPRAZOLE 40 MG/10 ML VIAL INJ IV SCH (21:30)
--- NOTE | 2020-01-01 22:08 | NUR ---
PT DANGLES HIS FEED AT THE EDGE OF BED ON HIS PHONE
--- NOTE | 2020-01-01 23:00 | NUR ---
PT HAD BOWEL MOVEMENT LIQUID WITH GREENISH MUCUS, SMALL MELENA NOTED
[2020-01-02] VITALS (14 sets, daily range): BP systolic 107–122; BP diastolic 65–74
[2020-01-02] MEDS: InsuLIN REG 1unit/0.01ml Soln (100units/ml) SC SCH ×5 (00:15→23:53)
[2020-01-02] MEDS: OCTREOTIDE ACETATE 500 MCG in SODIUM CHL 0.9% 99 ML IV SCH ×2 (02:33→15:44)
[2020-01-02 03:39] LABS: Basophils # (auto) 0 10 ^3/uL (0-0.2); Eosinophils # (auto) 0.3 10 ^3/uL (0-0.8); Lymphocytes # (auto) 0.3 10 ^3/uL (0.4-5.4); Monocytes # (auto) 0.5 10 ^3/uL (0-1.3); Nucleated Red Blood Cells % 0.1 %; White Blood Cell 7.7 10^3/uL (4.4-10.8)
[2020-01-02 03:41] LABS: Basophils % (auto) 0.4 % (0.0-2.0); Eosinophils % (auto) 4.4 % (0.0-7.0); Hemoglobin 10.3 g/dL (13.5-17.5); Lymphocytes % (auto) 4.2 % (10.0-50.0); Mean Corpuscular Hemoglobin 25.9 pg (28.0-32.0); Mean Corpuscular Hgb Conc. 32.3 g/dL (32.0-36.0); Neutrophils # (auto) 6.5 10 ^3/uL (1.6-8.6); Platelet Count (auto) 135 10^3/uL (140-450)
[2020-01-02 03:44] LABS: Red Cell Distribution Width 22.3 % (11.8-14.3)
--- NOTE | 2020-01-02 05:49 | NUR ---
GAVE REPORT TO GANESH
--- NOTE | 2020-01-02 05:50 | NUR ---
Received report from [facility] RN. Waiting for patient to transfer to the telemetry floor.
--- NOTE | 2020-01-02 05:51 | NUR ---
PT TRANSFERRED TO ROOM 208 TELE FROM [facility] 264 TRANSFERRED BY BED ON TELE MONITOR, BELONGINGS ARE WITH PT (SHIRT, SOCKS, WALLET SWEAT PANTS) TRANSFERRED BY FRANKIE COLIN AND SUGAR GLEASON
--- NOTE | 2020-01-02 05:55 | NUR ---
Patient transferred: Patient transferred to telemetry room 208 with all his belongs. Patient resting in bed with breaths even and unlabored. No s/s of distress SOB noted at this time. Call light is within reach of the patient. Instructed to all if they need something. Patient verbalized understanding.
[2020-01-02] MEDS: ACCU-CHEK COMFORT CURVE STRIP VI SCH ×5 (06:06→23:54)
--- NOTE | 2020-01-02 07:47 | NUR ---
Opening Note Assumed pt care from NOC RN. Pt is a/ox4 with no s/s of distress or SOB. Pt is currently out of bed with mild c/o of discomfort to his hernia; pt provided hot packs. Discussed POC with pt; pt verbalized understanding. Pt is currently tolerating ice chips well. Safety measures maintained with call light within reach, bed in lowest position and side rails up. Will continue to monitor for changes.
[2020-01-02] MEDS: PANTOPRAZOLE 40 MG/10 ML VIAL INJ IV SCH ×2 (08:27→22:03)
--- NOTE | 2020-01-02 08:53 | NUR ---
Assessment Patient is a 59-year-old male who is alert and oriented. Prior to admission patient lived home alone and functioned with assistance. Patient informed me his caregiver Jeremy ) helps him with his ADLs. Patient informed me his caregiver goes to his home 7 days a week for 8 hours daily. Patient informed me he received SSI with an amount of [id number]. Per patient he does not have any medical equipment now. Per patient he is on service with [facility]. Per patient he will return to his prior living arrangements and caregiver will transport patient home. Advised patient there is a social service consult for glucometer. Informed patient Ux Information Architect Sakina will complete order for glucometer. Patient will need a resumption order for [facility]. Informed patient he has a right to participate in all discharge planning. Patient verbalized understanding and agreed to discharge plan. Addendum: 01/02/20 at 0855 by JUDE PAZ Amended: Links added.
--- NOTE | 2020-01-02 09:48 | NUR ---
Dr Monahan at bedside MD to see pt. Discussed POC. Requests that we advance diet to clear liquid and assess pt. Also requests that we start him on abx. Will implement and continue to monitor.
[2020-01-02] MEDS: CIPROFLOXACIN HCL 500 MG TAB PO SCH ×2 (10:13→22:03)
--- NOTE | 2020-01-02 12:39 | NUR ---
Nutrition Assessment Note please see attached link for complete assessment Est Energy needs: 6522-6385 kcals (25-30 kcal/kgBW), Est Protein needs: 70-84 gms/day (1.1-1.2 gm/kgBW). Will continue to monitor and reassess prn. Addendum: 01/02/20 at [address] Amended: Links added.
[2020-01-02 13:17] LABS: Basophils # (auto) 0 10 ^3/uL (0-0.2); Eosinophils # (auto) 0.3 10 ^3/uL (0-0.8); Hemoglobin 10.5 g/dL (13.5-17.5); Monocytes # (auto) 0.4 10 ^3/uL (0-1.3)
[2020-01-02 13:19] LABS: Basophils % (auto) 0.4 % (0.0-2.0); Eosinophils % (auto) 5.4 % (0.0-7.0); Hematocrit 33.1 % (41.0-53.0); Lymphocytes # (auto) 0.3 10 ^3/uL (0.4-5.4); Lymphocytes % (auto) 5.2 % (10.0-50.0); Mean Corpuscular Hemoglobin 25.6 pg (28.0-32.0); Mean Corpuscular Hgb Conc. 31.7 g/dL (32.0-36.0); Mean Corpuscular Volume 80.8 fL (80.0-100.0); Neutrophils # (auto) 5.4 10 ^3/uL (1.6-8.6); Nucleated Red Blood Cells % 0.2 %; Platelet Count (auto) 146 10^3/uL (140-450); White Blood Cell 6.5 10^3/uL (4.4-10.8)
[2020-01-02 13:21] LABS: Red Cell Distribution Width 22.2 % (11.8-14.3)
[2020-01-02] MEDS ORDERED: PHYTONADIONE(VitK) ORAL Susp 10mg/10ml(1mg/ml) PO ONE (19:15)
--- NOTE | 2020-01-02 19:50 | NUR ---
Fall precautions/aspiration precautions/ulcer precautions in place
--- NOTE | 2020-01-02 19:50 | NUR ---
Opening Shift Note Assumed care of patient, awake and alert. No S/S of distress/SOB or pain. Instructed on POC and to call for assist PRN, will continue to monitor for changes Q1hr and PRN. bed in low position and call light within reach. fall precautions in place.
[2020-01-03 05:00] VITALS: BP 87/51
[2020-01-03] MEDS: OCTREOTIDE ACETATE 500 MCG in SODIUM CHL 0.9% 99 ML IV SCH ×2 (05:28→15:57)
[2020-01-03] MEDS: InsuLIN REG 1unit/0.01ml Soln (100units/ml) SC SCH ×3 (05:34→18:00)
[2020-01-03] MEDS: ACCU-CHEK COMFORT CURVE STRIP VI SCH ×3 (05:35→18:00)
--- NOTE | 2020-01-03 05:35 | NUR ---
PATIENT HAD BM. LINEN CHANGE DONE
--- NOTE | 2020-01-03 05:40 | NUR ---
PATIENT EDUCATED ON HOW TO USE IS PATIENT VERBALIZED UNDERSTANDING AND DEMONSTRATED BACK HOW TO USE IS.
[2020-01-03 06:30] VITALS: BP 100/59
[2020-01-03 06:38] LABS: Basophils # (auto) 0 10 ^3/uL (0-0.2); Eosinophils # (auto) 0.4 10 ^3/uL (0-0.8); Hemoglobin 10.1 g/dL (13.5-17.5); Lymphocytes # (auto) 0.5 10 ^3/uL (0.4-5.4); Neutrophils # (auto) 3.2 10 ^3/uL (1.6-8.6)
[2020-01-03 06:41] LABS: Basophils % (auto) 0.6 % (0.0-2.0); Eosinophils % (auto) 8.6 % (0.0-7.0); Hematocrit 32.4 % (41.0-53.0); Lymphocytes % (auto) 11.3 % (10.0-50.0); Mean Corpuscular Hemoglobin 25.4 pg (28.0-32.0); Mean Corpuscular Hgb Conc. 31.2 g/dL (32.0-36.0); Mean Corpuscular Volume 81.3 fL (80.0-100.0); Monocytes # (auto) 0.5 10 ^3/uL (0-1.3); Monocytes % (auto) 10.2 % (0.0-12.0); Neutrophils % (auto) 69.3 % (37.0-80.0); Nucleated Red Blood Cells % 0.3 %; Platelet Count (auto) 137 10^3/uL (140-450); Red Blood Cells 3.98 10^6/uL (4.5-5.90); White Blood Cell 4.6 10^3/uL (4.4-10.8)
[2020-01-03 06:56] LABS: Calcium 7.7 mg/dL (8.5-10.1); Potassium 3.5 mmol/L (3.5-5.1)
[2020-01-03 06:59] LABS: BUN/Creatinine Ratio 12.1
--- NOTE | 2020-01-03 07:04 | NUR ---
REPORT GIVEN TO DAYSHIFT RN. PATIENT IS AWAKE AND ALERT DENIES SOB DISTRESS OR PAIN.
[2020-01-03 07:06] LABS: Red Cell Distribution Width 22.2 % (11.8-14.3)
--- NOTE | 2020-01-03 07:25 | NUR ---
Opening Note Assumed pt care from ELSA RN. Pt is a/ox4 with no s/s of distress or SOB. PT is currently sitting upright in bed with no complaints at this time. Pt states that he is tolerating the advancement of his diet well. Pt states he is still having frequent stools; no melena present. Discussed POC with pt; pt verbalize understanding. Safety measures maintained with call light within reach, bed in lowest position and side rails up. Will continue to monitor for changes.
[2020-01-03] MEDS ORDERED: PANT40TA2 PO ×2 (08:07)
[2020-01-03] MEDS ORDERED: FER325T PO ×2 (08:07)
[2020-01-03] MEDS ORDERED: CIP500T PO ×2 (08:07)
[2020-01-03] MEDS ORDERED: BLOOKIT79 XX ×2 (08:09)
[2020-01-03 09:07] VITALS: BP 108/66
[2020-01-03] MEDS: CIPROFLOXACIN HCL 500 MG TAB PO SCH (09:08)
[2020-01-03] MEDS: PANTOPRAZOLE 40 MG/10 ML VIAL INJ IV SCH (09:09)
[2020-01-03 12:52] VITALS: BP 93/59
--- NOTE | 2020-01-03 16:25 | NUR ---
D/C Planning Spoke with Donna in Telegraphic Typewriter Operator Chief. Per SS, pt is okay to d/c. Will resume HH upon d/c. Will page Dr Monahan for clearance. Addendum: 01/03/20 at 1629 by RAMÍREZ HELLER RN RN Left message with Dr Monahan. Pending response for d/c. Addendum: 01/03/20 at 1636 by RAMÍREZ HELLER RN RN Dr Monahan paged back. cleared pt for d/c.
--- NOTE | 2020-01-03 16:29 | NUR ---
D/C Planning Per SS consult for home health safety evaluation and resumption for [facility]. F[facility]ed clinical information to [facility] and [facility] agency. Per Dolores with [facility] patient has been accepted and they will see patient within 24-48hrs upon d/c day. Melody with [facility] advised me [facility] has been approved and they will continue to provide authorization. Informed CRISTI Ambrosio.
[2020-01-03 16:33] VITALS: BP 93/59
[2020-01-03 17:00] VITALS: BP 112/89
--- NOTE | 2020-01-03 17:52 | NUR ---
IV and Tele 30 D/C'ed IVs t pt's L wrist and FA removed. Catheter was removed fully intact. Site is asymptomatic. Pressure was applied to both sites for 3 minutes with gauze and then wrapped in coban. Pt instructed to keep dressing on for 30 minutes Tele 30 d/c'ed and sent back to ICU Staff made aware.
--- NOTE | 2020-01-03 18:36 | NUR ---
PT D/C'ED OFF UNIT PT D/C'ED OFF UNIT VIA WHEELCHAIR. PT IS A/OX4 WITH NO S/S OF DISTRESS OR SOB. PT PROVIDED ALL EDUCATION MATERIAL, FOLLOW UP APPOINTMENT INFORMATION, PRESCRIPTION INFORMATION, AND ALL QUESTIONS WERE ANSWERED. IV AND TELE BOX WERE D/C'ED PRIOR TO D/C.
[2020-01-20] MEDS ORDERED: CIP500T PO (17:49)
== END 2020-01-03 18:37 | disposition home health service (06) | DRG 281 ==
LOC: EDBD 11:04 → ER 11:04 → TELE 11:05 → DOU IN ICU 19:50 → TELE-CENTR 01-02 05:55
PROVIDERS: ADMIT Family Medicine; ATTEND Internal Medicine
PROC: 30230N1 Transfusion of Nonautologous Red Blood Cells into Peripheral Vein, Open Approach (ICD-10-PCS; principal; 2019-12-31)
PROC: 06L38CZ Occlusion of Esophageal Vein with Extraluminal Device, Via Natural or Artificial Opening Endoscopic (ICD-10-PCS; 2020-01-01)
PROC: 30230N1 Transfusion of Nonautologous Red Blood Cells into Peripheral Vein, Open Approach (ICD-10-PCS; 2020-01-01)
DX: C22.9 Malignant neoplasm of liver, not specified as primary or secondary (principal); I85.11 Secondary esophageal varices with bleeding; K76.6 Portal hypertension; K70.31 Alcoholic cirrhosis of liver with ascites; D62 Acute posthemorrhagic anemia; R16.0 Hepatomegaly, not elsewhere classified; K21.9 Gastro-esophageal reflux disease without esophagitis; E11.9 Type 2 diabetes mellitus without complications; E78.5 Hyperlipidemia, unspecified; F17.210 Nicotine dependence, cigarettes, uncomplicated; K92.1 Melena; K40.90 Unilateral inguinal hernia, without obstruction or gangrene, not specified as recurrent; K80.20 Calculus of gallbladder without cholecystitis without obstruction; F32.9 Major depressive disorder, single episode, unspecified; F41.9 Anxiety disorder, unspecified; G47.00 Insomnia, unspecified; Z82.49 Family history of ischemic heart disease and other diseases of the circulatory system; Z82.0 Family history of epilepsy and other diseases of the nervous system; Z83.3 Family history of diabetes mellitus; I10 Essential (primary) hypertension; K31.89 Other diseases of stomach and duodenum; Z79.4 Long term (current) use of insulin
CPT/HCPCS: 36415; 71045; 74176; 80048; 80053; 81001; 82150; 82962; 83690; 83735; 85014; 85018; 85025; 85610; 85730; 86850; 86900; 86901; 86920; 87081; 93005; C9113; G0378; J1815; J2250; J2405; J3430; J3480

== ENCOUNTER → 2020-01-08 | Emergency (ER) | payer MEDICAID ==
[~2020-01-08] VITALS: Ht 170.2 cm; Wt 68.0 kg
[~2020-01-08] MED LIST changes: +BLOOKIT79 XX; +CIP500T PO; +HYDR-392 PO; +HYDROmorphone HCL 2 MG/ML VL IV ONE; +InsuLIN REG 1unit/0.01ml Soln (100units/ml) IV ONE; +ONDANSETRON HCL 4 MG/2 ML VIAL IV ONE; +PANT40T PO; +SODIUM CHLORIDE 0.9% 500 ML IVB ONE
[2020-01-08 21:23] LABS: Red Blood Cells 3.87 10^6/uL (4.5-5.90)
[2020-01-08 21:24] LABS: Hemoglobin 9.5 g/dL (13.5-17.5); Mean Corpuscular Hemoglobin 24.6 pg (28.0-32.0); Mean Corpuscular Hgb Conc. 29.7 g/dL (32.0-36.0); Mean Corpuscular Volume 82.6 fL (80.0-100.0); Platelet Count (auto) 97 10^3/uL (140-450); White Blood Cell 3.9 10^3/uL (4.4-10.8)
[2020-01-08 21:36] LABS: Red Cell Distribution Width 22.6 % (11.8-14.3)
[2020-01-08 21:37] LABS: Band Neutrophils % (manual) 0; Basophils % (manual) 0 (0.0-2.0); Blast Cells 0; INR 1.07 (0.9-1.15); Myelocytes % 0; Partial Thromboplastin Time 25.3 sec (23.64-32.05); Promyelocytes % 0; Reactive Lymphocytes 0
[2020-01-08 21:39] LABS: Albumin 2.1 g/dL (3.4-5.0); BUN/Creatinine Ratio 10.3; Calcium 8.1 mg/dL (8.5-10.1); Potassium 4.4 mmol/L (3.5-5.1)
[2020-01-08 21:42] LABS: Bilirubin, Total 0.6 mg/dL (0.2-1.0); Total Protein 7.2 g/dL (6.4-8.2)
[2020-01-08 22:19] LABS: Eosinophils % (manual) 3 (0-7); Lymphocytes % (manual) 6 (10.0-50.0); Metamyelocytes % 1; Monocytes % (manual) 6 (0-12)
[2020-01-08 22:29] LABS: Urine Bacteria NONE SEEN /hpf (None Seen); Urine Blood Negative /uL (Negative); Urine Specific Gravity 1.033 (1.001-1.035); Urine WBC <1 /hpf (0 - 3)
[2020-01-09 00:35] VITALS: BP 121/77
== END | disposition home or self-care (01) ==
LOC: EDUNIT# 19:36 → ER 19:46 → EDBD 19:46
DX: C76.2 Malignant neoplasm of abdomen (principal); C22.9 Malignant neoplasm of liver, not specified as primary or secondary; E11.9 Type 2 diabetes mellitus without complications; E78.5 Hyperlipidemia, unspecified; I10 Essential (primary) hypertension; I25.2 Old myocardial infarction; F17.210 Nicotine dependence, cigarettes, uncomplicated
CPT/HCPCS: 36415; 74176; 80053; 81001; 82150; 82962; 83690; 83735; 85007; 85027; 85610; 85730; 93005; 96374; 96375; 99285; J1170; J2405; J1815

== ENCOUNTER 2020-01-19 15:06 | Inpatient (IN) | payer MEDICAID ==
[~2020-01-19] VITALS: Ht 167.6 cm; Wt 72.6 kg
[~2020-01-19 15:06] MED LIST changes: -FERR1TAB36 PO; -HYDR-392 PO; -HYDROmorphone HCL 2 MG/ML VL IV ONE; -InsuLIN REG 1unit/0.01ml Soln (100units/ml) IV ONE; -LEVO500T21 PO; -METR500T PO; -MUPI2OIN2 NAS; -ONDANSETRON HCL 4 MG/2 ML VIAL IV ONE; -PANT40T PO; -SODIUM CHLORIDE 0.9% 500 ML IVB ONE; -SUCR1TAB22 PO; +SUCR1TAB38 PO
[2020-01-19 19:15] LABS: Basophils # (auto) 0.1 10 ^3/uL (0-0.2); Basophils % (auto) 0.7 % (0.0-2.0); Eosinophils # (auto) 0.1 10 ^3/uL (0-0.8); Hemoglobin 8.2 g/dL (13.5-17.5); Lymphocytes # (auto) 0.5 10 ^3/uL (0.4-5.4); Lymphocytes % (auto) 7.2 % (10.0-50.0); Mean Corpuscular Volume 77.5 fL (80.0-100.0); Neutrophils # (auto) 5.8 10 ^3/uL (1.6-8.6); White Blood Cell 7.1 10^3/uL (4.4-10.8)
[2020-01-19 19:18] LABS: Mean Corpuscular Hemoglobin 23.7 pg (28.0-32.0); Mean Corpuscular Hgb Conc. 30.6 g/dL (32.0-36.0); Monocytes # (auto) 0.6 10 ^3/uL (0-1.3); Monocytes % (auto) 8.9 % (0.0-12.0); Neutrophils % (auto) 82.2 % (37.0-80.0); Platelet Count (auto) 276 10^3/uL (140-450); Red Blood Cells 3.48 10^6/uL (4.5-5.90)
[2020-01-19 19:23] LABS: INR 1.12 (0.9-1.15); Partial Thromboplastin Time 27.4 sec (23.64-32.05)
[2020-01-19 19:27] LABS: Albumin 2.5 g/dL (3.4-5.0); Anion Gap 7 (5-15); Blood Urea Nitrogen 9 mg/dL (7-18); Calcium 8.3 mg/dL (8.5-10.1); Carbon Dioxide 25 mmol/L (21-32); Chloride 102 mmol/L (98-107); Glucose 104 mg/dL (74-106); Potassium 3.3 mmol/L (3.5-5.1); Sodium 134 mmol/L (136-145)
[2020-01-19 19:29] LABS: BUN/Creatinine Ratio 14.3; GFR African American 167 mL/min; GFR Non-African American 138 mL/min
[2020-01-19 19:31] LABS: Red Cell Distribution Width 22.2 % (11.8-14.3)
[2020-01-19 19:34] LABS: Alanine Aminotransferase 36 U/L (16-61); Alkaline Phosphatase 320 U/L (45-117); Aspartate Aminotransferase 87 U/L (15-37); Bilirubin, Total 0.7 mg/dL (0.2-1.0); Total Protein 7.9 g/dL (6.4-8.2)
[2020-01-19] MEDS ORDERED: POTASSIUM CHL 20 Meq TABLET PO ONE (20:00)
[2020-01-19] MEDS ORDERED: PANTOPRAZOLE 40 MG/10 ML VIAL INJ IV ONE (20:15)
[2020-01-19] MEDS ORDERED: DEXTROSE (50%) 50ML SYRG IV PRN (21:15)
[2020-01-19] MEDS ORDERED: NITROGLYCERIN 0.4 MG SL TAB SL PRN (22:45)
[2020-01-19] MEDS ORDERED: MORPHINE SULF INJ 2 MG/ML SYRINGE 1ML IV PRN (22:45)
[2020-01-20] MEDS: InsuLIN REG 1unit/0.01ml Soln (100units/ml) SC SCH ×4 (05:40→17:58)
[2020-01-20] MEDS: PROPRANOLOL HCL 20 MG TAB PO SCH ×2 (05:40→10:41)
[2020-01-20] MEDS: ACCU-CHEK COMFORT CURVE STRIP VI SCH ×4 (05:41→17:58)
[2020-01-20] MEDS: FERROUS SULFATE 325 MG TAB PO SCH ×3 (08:05→18:01)
[2020-01-20] MEDS: SUCRALFATE 1 GM TAB PO SCH ×3 (08:05→18:01)
[2020-01-20] MEDS ORDERED: PANTOPRAZOLE 40 MG TAB PO SCH (10:00)
[2020-01-20] MEDS ORDERED: POTASSIUM CHL 20 Meq TABLET PO ONE (13:15)
--- NOTE | 2020-01-20 14:15 | NUR ---
MS admit from ER NICKI BERRIOS admitted to MS after SBAR received. Patient oriented to Sofy Hopson RN primary RN, unit, room, bed, and unit policies regarding patient care and visiting hours. Patient weighed by bedscale and encouraged to call if they need something. All questions and concerns addressed, patient verbalized understanding. Assumed care of patient, who is alert and oriented x4. No S/S of distress/SOB or pain. Noted abdomen to be firm and distended. Patient scheduled to have paracentesis on Wednesday. Bed is low, locked with 2x side rails up. Call light is within reach. Instructed on POC and to call for assist PRN, will continue to monitor for changes Q1hr and PRN.
--- NOTE | 2020-01-20 15:12 | NUR ---
UA Patient aware of need for urine sample. Supplies are at bedside. Will continue to monitor.
[2020-01-20 17:11] VITALS: BP 113/79
--- NOTE | 2020-01-20 17:11 | NUR ---
MRSA Mrsa swab collected and sent to lab as per protocol. Will continue to monitor.
--- NOTE | 2020-01-20 17:19 | NUR ---
Paracentesis Dr. Young at bedside for paracentesis. Consents signed and filed in chart. Per Dr. Young patient needs to be discharged with antibiotics. Will relay message to .
--- NOTE | 2020-01-20 17:21 | NUR ---
LVM for L. Dave LVM in regards to patient needing antibiotics if patient is to be discharged after paracentesis. Will continue to monitor.
[2020-01-20] MEDS ORDERED: CIP500T PO ×2 (17:49)
[2020-01-20] MEDS ORDERED: traZODone HCL 50 MG TAB PO SCH (18:00)
[2020-01-20] MEDS ORDERED: PRAMIPEXOLE DIHYDROCHLORIDE MO 0.25 MG TAB PO SCH (18:00)
--- NOTE | 2020-01-20 18:02 | NUR ---
Paracentesis output 4350 ml out.
[2020-01-20 18:38] VITALS: BP 107/68
--- NOTE | 2020-01-20 19:12 | NUR ---
Endorsed care To NOC RN. Provided NOC RN with taxi voucher and instructions for patient. All questions answered.
--- NOTE | 2020-01-20 19:30 | NUR ---
Patient taken down to lobby via manual wheelchair and discharge to home via Taxi.
== END 2020-01-20 19:38 | disposition home health service (06) | DRG 280 ==
LOC: ER 15:06 → EDBD 15:06 → EDUNIT# 15:06 → OVERFLOW 15:07 → WEST WING 01-20 14:24
PROVIDERS: ADMIT Hospitalist; ATTEND Hospitalist
PROC: 0W9G3ZZ Drainage of Peritoneal Cavity, Percutaneous Approach (ICD-10-PCS; principal; 2020-01-20)
DX: K70.31 Alcoholic cirrhosis of liver with ascites (principal); I10 Essential (primary) hypertension; E11.9 Type 2 diabetes mellitus without complications; D64.9 Anemia, unspecified; F32.9 Major depressive disorder, single episode, unspecified; F41.9 Anxiety disorder, unspecified; E78.5 Hyperlipidemia, unspecified; F17.210 Nicotine dependence, cigarettes, uncomplicated; E87.6 Hypokalemia; I25.2 Old myocardial infarction; Z79.899 Other long term (current) drug therapy; F10.10 Alcohol abuse, uncomplicated; Y90.9 Presence of alcohol in blood, level not specified; E44.1 Mild protein-calorie malnutrition
CPT/HCPCS: 36415; 49083; 71045; 76700; 76942; 80053; 82140; 82962; 83880; 83986; 84484; 85025; 85610; 85730; 87081; 87205; 89051; 93005; C9113; G0378; J1815

== ENCOUNTER 2020-01-27 14:04 | Inpatient (IN) | payer MEDICAID ==
[~2020-01-27] VITALS: Ht 170.2 cm; Wt 68.2 kg
[2020-01-27] VITALS (7 sets, daily range): BP systolic 111–129; BP diastolic 65–85
[2020-01-27 15:41] LABS: Basophils # (auto) 0.1 10 ^3/uL (0-0.2); Eosinophils # (auto) 0.2 10 ^3/uL (0-0.8); Hematocrit 21.9 % (41.0-53.0); Lymphocytes # (auto) 0.4 10 ^3/uL (0.4-5.4); Mean Corpuscular Hemoglobin 22.9 pg (28.0-32.0); Monocytes # (auto) 0.5 10 ^3/uL (0-1.3)
[2020-01-27 15:48] LABS: Basophils % (auto) 1.2 % (0.0-2.0); Eosinophils % (auto) 3.1 % (0.0-7.0); Lymphocytes % (auto) 7.2 % (10.0-50.0); Mean Corpuscular Hgb Conc. 30.2 g/dL (32.0-36.0); Monocytes % (auto) 9.2 % (0.0-12.0); Neutrophils # (auto) 4.2 10 ^3/uL (1.6-8.6); Neutrophils % (auto) 79.3 % (37.0-80.0); Nucleated Red Blood Cells % 0.1 %; Platelet Count (auto) 165 10^3/uL (140-450); Red Blood Cells 2.89 10^6/uL (4.5-5.90); White Blood Cell 5.3 10^3/uL (4.4-10.8)
[2020-01-27 15:53] LABS: Hemoglobin 6.6 g/dL (13.5-17.5)
[2020-01-27 15:54] LABS: INR 1.04 (0.9-1.15); Partial Thromboplastin Time 27.3 sec (23.64-32.05)
[2020-01-27 15:58] LABS: Albumin 2.1 g/dL (3.4-5.0); Calcium 8.3 mg/dL (8.5-10.1); Magnesium 1.7 mg/dL (1.6-2.6); Potassium 3.8 mmol/L (3.5-5.1)
[2020-01-27 16:00] LABS: BUN/Creatinine Ratio 15.6
[2020-01-27 16:02] LABS: Bilirubin, Total 0.4 mg/dL (0.2-1.0); Total Protein 7.1 g/dL (6.4-8.2)
[2020-01-27] MEDS ORDERED: NITROGLYCERIN 0.4 MG SL TAB SL PRN (17:30)
[2020-01-27] MEDS ORDERED: PANTOPRAZOLE 40mg/50ML NS AE 50 ML IV ONE (17:30)
[2020-01-27] MEDS ORDERED: MORPHINE SULF INJ 2 MG/ML SYRINGE 1ML IV PRN (17:30)
[2020-01-27] MEDS: SODIUM CHLORIDE 0.9% 1,000 ML IV SCH (18:56)
[2020-01-27] MEDS: OCTREOTIDE ACETATE 500 MCG in SODIUM CHL 0.9% 99 ML IV SCH (19:55)
[2020-01-28 00:30] VITALS: BP 115/71
[2020-01-28 01:30] VITALS: BP 123/85
[2020-01-28] MEDS: ONDANSETRON HCL 4 MG/2 ML VIAL IV PRN ×4 (01:42→20:10)
[2020-01-28] MEDS: MORPHINE SULF INJ 2 MG/ML SYRINGE 1ML IV PRN ×4 (01:43→20:10)
[2020-01-28] MEDS: SODIUM CHLORIDE 0.9% 1,000 ML IV SCH ×3 (01:43→17:00)
[2020-01-28 01:45] VITALS: BP 122/77
[2020-01-28 06:08] LABS: Basophils # (auto) 0.1 10 ^3/uL (0-0.2); Eosinophils # (auto) 0.1 10 ^3/uL (0-0.8); Hematocrit 29.2 % (41.0-53.0); Lymphocytes # (auto) 0.2 10 ^3/uL (0.4-5.4); Lymphocytes % (auto) 2.4 % (10.0-50.0); Monocytes # (auto) 0.4 10 ^3/uL (0-1.3); Red Blood Cells 3.78 10^6/uL (4.5-5.90); White Blood Cell 7.9 10^3/uL (4.4-10.8)
[2020-01-28 06:10] LABS: Basophils % (auto) 0.9 % (0.0-2.0); Eosinophils % (auto) 1.7 % (0.0-7.0); Mean Corpuscular Hemoglobin 23.8 pg (28.0-32.0); Mean Corpuscular Hgb Conc. 30.8 g/dL (32.0-36.0); Mean Corpuscular Volume 77.3 fL (80.0-100.0); Monocytes % (auto) 5.7 % (0.0-12.0); Neutrophils % (auto) 89.3 % (37.0-80.0); Nucleated Red Blood Cells % 0.1 %; Platelet Count (auto) 157 10^3/uL (140-450); Red Cell Distribution Width 20.3 % (11.8-14.3)
[2020-01-28 06:28] LABS: Potassium 3.7 mmol/L (3.5-5.1)
[2020-01-28 06:34] LABS: Albumin 2.2 g/dL (3.4-5.0); BUN/Creatinine Ratio 14.5; Magnesium 1.7 mg/dL (1.6-2.6); Total Protein 7.2 g/dL (6.4-8.2)
[2020-01-28] MEDS ORDERED: OCTREOTIDE ACETATE 500 MCG in SODIUM CHL 0.9% 99 ML IV SCH (06:45)
[2020-01-28] MEDS: OCTREOTIDE ACETATE 500 MCG in SODIUM CHL 0.9% 99 ML IV SCH (07:36)
--- NOTE | 2020-01-28 15:32 | NUR ---
Patient arrived to floor. No signs of distress noted. Will continue to monitor.
[2020-01-28 16:40] VITALS: BP 113/80
--- NOTE | 2020-01-28 19:20 | NUR ---
OPENING NOTE- NOC SHIFT PATIENT IS ALERT AND ORIENTED, X4 ANSWERS IN COMPLETE SENTENCES AND MAKES APPROPRIATE EYE CONTACT. PATIENT IS IN BED, BED IS LOCKED AT LOWEST POSITION. BEDSIDE TABLE WITHIN REACH, CALL LIGHT WITHIN REACH. NO S/SX OF DISTRESS, SOB OR PAIN. DISCUSSED POC WITH PATIENT AND INSTRUCTED PATIENT TO CALL USING CALL LIGHT; PATIENT VERBALIZED UNDERSTANDING. WILL CONTINUE TO MONITOR Q1H AND PRN.
--- NOTE | 2020-01-28 19:32 | NUR ---
Endorsed care to CRISTI Velasquez Patient shows no signs of distress.
[2020-01-28 20:00] VITALS: BP 124/79
[2020-01-28] MEDS: PANTOPRAZOLE 40 MG/10 ML VIAL INJ IV SCH (20:59)
[2020-01-28 21:36] VITALS: BP 124/79
--- NOTE | 2020-01-28 23:27 | NUR ---
ROUNDS PATIENT RESTING EYES CLOSED. NO S/SX OF DISTRESS, SOB OR PAIN. WILL CONTINUE TO MONITOR Q1H AND PRN.
--- NOTE | 2020-01-28 23:57 | NUR ---
URINE SPECIMEN SENT TO LAB
[2020-01-29 00:33] LABS: Urine Bacteria FEW /hpf (None Seen); Urine Blood Negative /uL (Negative); Urine Hyaline Cast FEW /lpf (0 - 2); Urine Mucus FEW (None Seen); Urine Specific Gravity 1.018 (1.001-1.035); Urine WBC 1 /hpf (0 - 3)
[2020-01-29] MEDS: SODIUM CHLORIDE 0.9% 1,000 ML IV SCH ×3 (01:06→17:30)
[2020-01-29 08:00] VITALS: BP 112/78
[2020-01-29 09:00] VITALS: BP 112/78
[2020-01-29] MEDS: PANTOPRAZOLE 40 MG/10 ML VIAL INJ IV SCH ×2 (09:32→21:56)
[2020-01-29] MEDS ORDERED: GADOTERIDOL 279.3mg/mL 20ml Vial IV ONE (11:16)
[2020-01-29 13:00] VITALS: BP 114/76
--- NOTE | 2020-01-29 14:00 | NUR ---
PT IN ULTRASOUND FOR A PARACENTESIS WITH DR NAIR. VS 115/64-85-15-99% 4600 ML OF FLUID REMOVED.,
[2020-01-29 16:20] LABS: BUN/Creatinine Ratio 9.2; Calcium 7.9 mg/dL (8.5-10.1); Potassium 3.7 mmol/L (3.5-5.1)
[2020-01-29 16:23] LABS: Basophils # (auto) 0 10 ^3/uL (0-0.2); Basophils % (auto) 0.6 % (0.0-2.0); Eosinophils # (auto) 0.1 10 ^3/uL (0-0.8); Lymphocytes # (auto) 0.3 10 ^3/uL (0.4-5.4)
[2020-01-29 16:26] LABS: Eosinophils % (auto) 2.3 % (0.0-7.0); Hematocrit 26.5 % (41.0-53.0); Hemoglobin 8.2 g/dL (13.5-17.5); Lymphocytes % (auto) 5.5 % (10.0-50.0); Mean Corpuscular Hemoglobin 23.9 pg (28.0-32.0); Mean Corpuscular Hgb Conc. 30.9 g/dL (32.0-36.0); Mean Corpuscular Volume 77.2 fL (80.0-100.0); Monocytes # (auto) 0.3 10 ^3/uL (0-1.3); Monocytes % (auto) 7.5 % (0.0-12.0); Neutrophils # (auto) 3.9 10 ^3/uL (1.6-8.6); Neutrophils % (auto) 84.1 % (37.0-80.0); Nucleated Red Blood Cells % 0.2 %; Platelet Count (auto) 164 10^3/uL (140-450); Red Blood Cells 3.44 10^6/uL (4.5-5.90); White Blood Cell 4.6 10^3/uL (4.4-10.8)
[2020-01-29 16:30] LABS: Red Cell Distribution Width 20.6 % (11.8-14.3)
[2020-01-29 17:27] VITALS: BP 98/61
--- NOTE | 2020-01-29 19:20 | NUR ---
OPENING NOTE- NOC SHIFT PATIENT IS IN BED RESTING. PATIENT DENIES PAIN AT THIS TIME. BED IS LOCKED AT LOWEST POSITION, BED RAILS UP X2, BEDSIDE TABLE WITHIN REACH, CALL LIGHT WITHIN REACH. DISCUSSED POC WITH PATIENT AND INSTRUCTED PATIENT TO USE CALL LIGHT PRN. WILL CONTINUE TO MONITOR Q1H AND PRN.
[2020-01-29 20:00] VITALS: BP 112/71
[2020-01-29 22:00] VITALS: BP 112/71
[2020-01-30] MEDS: SODIUM CHLORIDE 0.9% 1,000 ML IV SCH ×2 (01:10→08:57)
[2020-01-30 05:00] VITALS: BP 109/71
[2020-01-30 08:48] VITALS: BP 126/81
[2020-01-30 08:49] VITALS: BP 113/68
--- NOTE | 2020-01-30 08:56 | NUR ---
Dr. Garcia/oncology at bed side to see pt, doctor discussed the plan of care with pt.
[2020-01-30] MEDS: PANTOPRAZOLE 40 MG/10 ML VIAL INJ IV SCH (08:57)
[2020-01-30 10:28] LABS: Hemoglobin 8.7 g/dL (13.5-17.5); Nucleated Red Blood Cells % 0.1 %
[2020-01-30 10:31] LABS: Basophils # (auto) 0 10 ^3/uL (0-0.2); Basophils % (auto) 0.9 % (0.0-2.0); Eosinophils # (auto) 0.1 10 ^3/uL (0-0.8); Eosinophils % (auto) 1.8 % (0.0-7.0); Hematocrit 27.8 % (41.0-53.0); Lymphocytes # (auto) 0.2 10 ^3/uL (0.4-5.4); Lymphocytes % (auto) 4.8 % (10.0-50.0); Mean Corpuscular Hgb Conc. 31.2 g/dL (32.0-36.0); Mean Corpuscular Volume 77.1 fL (80.0-100.0); Monocytes # (auto) 0.3 10 ^3/uL (0-1.3); Monocytes % (auto) 6.4 % (0.0-12.0); Neutrophils % (auto) 86.1 % (37.0-80.0); Platelet Count (auto) 176 10^3/uL (140-450); Red Blood Cells 3.61 10^6/uL (4.5-5.90); Red Cell Distribution Width 20.5 % (11.8-14.3); White Blood Cell 4.7 10^3/uL (4.4-10.8)
[2020-01-30 10:44] LABS: Calcium 7.6 mg/dL (8.5-10.1); Potassium 3.8 mmol/L (3.5-5.1)
[2020-01-30 10:47] LABS: BUN/Creatinine Ratio 8.5
[2020-01-30 12:30] VITALS: BP 95/55
--- NOTE | 2020-01-30 12:57 | NUR ---
Pt refused to be NPO to have the MRI, called Dr. Mckinney and left a message informing him that pt refused to be npo for the abdomen MRI, pt requesting to be d/c, awaiting call back.
--- NOTE | 2020-01-30 13:30 | NUR ---
Received call back from Dr. Mckinney, doctor informed that pt was seen by oncology Dr. Garcia and per oncology for pt to follow up at [facility], received orders for pt to be d/c, and to order protonix and carafate. Pt informed, pt requested transportation. Called and left a message to protective services case worker for help with transportation.
[2020-01-30 13:42] VITALS: BP 95/55
--- NOTE | 2020-01-30 13:42 | NUR ---
Called [facility] at [phone] to order protonix 40 mg po qd, and Carafate 1 gm po QID.
--- NOTE | 2020-01-30 13:55 | NUR ---
Called and spoke to Cate Brown / social contact worker, inform that pt needs assistance with transportation for d/c, obtained a taxi voucher.
--- NOTE | 2020-01-30 15:00 | NUR ---
Dr. Mckinney at bed side to see pt, doctor discussed the plan of care with pt.
--- NOTE | 2020-01-30 15:15 | NUR ---
Discharge instructions given as ordered. Encourage to follow up with PMD as instructed. All questions and concerns addressed. Patient verbalized understanding. Medication reconciliation form completed and copy given to patient. No home medications held in Pharmacy, and no needed vaccines to be given. IV removed with catheter intact, pressure dressing applied. Telemetry unit returned to ICU. Taxi called to take pt with taxi voucher.
--- NOTE | 2020-01-30 15:20 | NUR ---
Patient taken to vehicle via wheelchair with all personal belongings, accompanied by staff, taxi voucher given to regional flatbed truck driver. No distress noted at time of departure.
== END 2020-01-30 15:20 | disposition home or self-care (01) | DRG 280 ==
LOC: ER 14:04 → EDBD 14:04 → TELE 14:05 → TELE-WESTW 01-28 15:35
PROVIDERS: ADMIT Internal Medicine; ATTEND Internal Medicine
PROC: 30233N1 Transfusion of Nonautologous Red Blood Cells into Peripheral Vein, Percutaneous Approach (ICD-10-PCS; principal; 2020-01-27)
PROC: 0W9G3ZZ Drainage of Peritoneal Cavity, Percutaneous Approach (ICD-10-PCS; 2020-01-29)
DX: K70.31 Alcoholic cirrhosis of liver with ascites (principal); K92.1 Melena; K72.90 Hepatic failure, unspecified without coma; E87.1 Hypo-osmolality and hyponatremia; F51.04 Psychophysiologic insomnia; E78.5 Hyperlipidemia, unspecified; F17.210 Nicotine dependence, cigarettes, uncomplicated; N18.6 End stage renal disease; I12.0 Hypertensive chronic kidney disease with stage 5 chronic kidney disease or end stage renal disease; Z53.20 Procedure and treatment not carried out because of patient's decision for unspecified reasons; K76.6 Portal hypertension; D64.9 Anemia, unspecified; F32.9 Major depressive disorder, single episode, unspecified; D62 Acute posthemorrhagic anemia; E11.22 Type 2 diabetes mellitus with diabetic chronic kidney disease; C22.0 Liver cell carcinoma; F10.20 Alcohol dependence, uncomplicated; Y90.9 Presence of alcohol in blood, level not specified; Z83.3 Family history of diabetes mellitus; Z82.49 Family history of ischemic heart disease and other diseases of the circulatory system; Z82.0 Family history of epilepsy and other diseases of the nervous system; E44.0 Moderate protein-calorie malnutrition
CPT/HCPCS: 10022; 36415; 71045; 74176; 76700; 76942; 80048; 80053; 81001; 83690; 83735; 85025; 85610; 85730; 86850; 86900; 86901; 86920; 87081; 93005; C9113; G0378; J2405

== ENCOUNTER 2020-02-16 09:56 | Inpatient (IN) | payer MEDICAID ==
[~2020-02-16] VITALS: Ht 170.2 cm; Wt 76.0 kg
[2020-02-16] VITALS (9 sets, daily range): BP systolic 102–117; BP diastolic 63–73
[~2020-02-16 09:56] MED LIST changes: -CIP500T PO; +SUCR1TAB22 PO; -SUCR1TAB38 PO
[2020-02-16] MEDS ORDERED: PANTOPRAZOLE 40 MG/10 ML VIAL INJ IV ONE (11:00)
[2020-02-16 11:23] LABS: Basophils # (auto) 0 10 ^3/uL (0-0.2); Eosinophils # (auto) 0 10 ^3/uL (0-0.8); Lymphocytes # (auto) 0.3 10 ^3/uL (0.4-5.4); Mean Corpuscular Hgb Conc. 29.9 g/dL (32.0-36.0)
[2020-02-16 11:25] LABS: Basophils % (auto) 0.3 % (0.0-2.0); Eosinophils % (auto) 0.1 % (0.0-7.0); Hematocrit 17.3 % (41.0-53.0); Lymphocytes % (auto) 3.3 % (10.0-50.0); Mean Corpuscular Volume 73.8 fL (80.0-100.0); Monocytes # (auto) 0.8 10 ^3/uL (0-1.3); Monocytes % (auto) 8.4 % (0.0-12.0); Neutrophils # (auto) 8.8 10 ^3/uL (1.6-8.6); Neutrophils % (auto) 87.9 % (37.0-80.0); Nucleated Red Blood Cells % 0.2 %; Platelet Count (auto) 235 10^3/uL (140-450); Red Blood Cells 2.34 10^6/uL (4.5-5.90)
[2020-02-16 11:34] LABS: Albumin 2.1 g/dL (3.4-5.0); Calcium 8.4 mg/dL (8.5-10.1); Potassium 4.2 mmol/L (3.5-5.1)
[2020-02-16 11:38] LABS: INR 1.13 (0.9-1.15); Partial Thromboplastin Time 29.3 sec (23.0-31.2)
[2020-02-16 11:39] LABS: BUN/Creatinine Ratio 32.9; Total Protein 6.9 g/dL (6.4-8.2)
[2020-02-16 11:58] LABS: Red Cell Distribution Width 20.8 % (11.8-14.3)
[2020-02-16 12:03] LABS: Hemoglobin 5.2 g/dL (13.5-17.5)
[2020-02-16] MEDS ORDERED: ONDANSETRON HCL 4 MG/2 ML VIAL IV PRN (13:45)
[2020-02-16] MEDS ORDERED: MORPHINE SULF INJ 2 MG/ML SYRINGE 1ML IV PRN (13:45)
[2020-02-16] MEDS ORDERED: NITROGLYCERIN 0.4 MG SL TAB SL PRN (13:45)
[2020-02-16] MEDS ORDERED: OCTREOTIDE ACETATE 100 MCG in SODIUM CHL 0.9% 50 ML IV ONE (14:00)
[2020-02-16] MEDS: CEFTRIAXONE SODIUM 2 GM in D5W 5% 50 ML IV SCH (15:21)
[2020-02-16] MEDS ORDERED: PANT40TA2 PO (15:26)
[2020-02-16] MEDS: SODIUM CHLORIDE 0.9% 1,000 ML IV SCH (15:33)
[2020-02-16] MEDS: OCTREOTIDE ACETATE 500 MCG in SODIUM CHL 0.9% 99 ML IV SCH (16:21)
[2020-02-16] MEDS: PANTOPRAZOLE 40 MG/10 ML VIAL INJ IV SCH (22:08)
[2020-02-16 22:52] LABS: Hematocrit 21.9 % (41.0-53.0)
[2020-02-16 22:59] LABS: Hemoglobin 6.8 g/dL (13.5-17.5)
[2020-02-17 00:29] VITALS: BP 104/65
[2020-02-17 00:55] VITALS: BP 91/57
[2020-02-17] MEDS ORDERED: OCTREOTIDE ACETATE 500 MCG/ML VL ONE (02:42)
[2020-02-17] MEDS: OCTREOTIDE ACETATE 500 MCG in SODIUM CHL 0.9% 99 ML IV SCH ×3 (02:52→20:00)
[2020-02-17 03:09] VITALS: BP 96/63
[2020-02-17] MEDS: SODIUM CHLORIDE 0.9% 1,000 ML IV SCH ×2 (03:13→19:44)
[2020-02-17] MEDS ORDERED: FLUMAZENIL 0.1 MG/ML INJ 10ML MDV IV ONE (07:59)
[2020-02-17] MEDS ORDERED: EPINEPHrine HCL 1 MG/10 ML SYRG ONE (07:59)
[2020-02-17] MEDS ORDERED: LIDOCAINE VISCOUS 2% 15ML UD ONE ×2 (07:59→13:48)
[2020-02-17] MEDS ORDERED: NALOXONE HCL 0.4 MG/ML VIAL ONE (07:59)
[2020-02-17] MEDS ORDERED: diphenhdrAMINE HCL 50 MG/1 ML VL ONE (08:00)
[2020-02-17] MEDS ORDERED: SODIUM CHLORIDE LOCK 10 ML ONE (08:01)
[2020-02-17] MEDS: PANTOPRAZOLE 40 MG/10 ML VIAL INJ IV SCH ×2 (09:49→19:44)
[2020-02-17] MEDS: CEFTRIAXONE SODIUM 2 GM in D5W 5% 50 ML IV SCH (11:28)
[2020-02-17 11:35] LABS: Basophils # (auto) 0 10 ^3/uL (0-0.2); Eosinophils # (auto) 0.1 10 ^3/uL (0-0.8); Hemoglobin 7.7 g/dL (13.5-17.5); Neutrophils # (auto) 7.2 10 ^3/uL (1.6-8.6)
[2020-02-17 11:37] LABS: Basophils % (auto) 0.5 % (0.0-2.0); Eosinophils % (auto) 0.6 % (0.0-7.0); Hematocrit 24.4 % (41.0-53.0); Lymphocytes # (auto) 0.3 10 ^3/uL (0.4-5.4); Lymphocytes % (auto) 3.8 % (10.0-50.0); Mean Corpuscular Hemoglobin 24.9 pg (28.0-32.0); Mean Corpuscular Hgb Conc. 31.5 g/dL (32.0-36.0); Monocytes % (auto) 11.2 % (0.0-12.0); Neutrophils % (auto) 83.9 % (37.0-80.0); Nucleated Red Blood Cells % 0.2 %; Platelet Count (auto) 177 10^3/uL (140-450); Red Blood Cells 3.09 10^6/uL (4.5-5.90); Red Cell Distribution Width 19.5 % (11.8-14.3); White Blood Cell 8.6 10^3/uL (4.4-10.8)
[2020-02-17 11:54] LABS: Calcium 7.7 mg/dL (8.5-10.1); Potassium 4.1 mmol/L (3.5-5.1)
[2020-02-17] MEDS: fentaNYL CITRATE 100 MCG/2 ML VL ONE ×2 (13:53→13:56)
[2020-02-17] MEDS: MIDAZOLAM HCL 5 MG/ML-1ML VIAL ONE ×2 (13:53→13:56)
[2020-02-17 19:10] LABS: Basophils # (auto) 0 10 ^3/uL (0-0.2); Eosinophils # (auto) 0.1 10 ^3/uL (0-0.8); Hemoglobin 8.7 g/dL (13.5-17.5); Monocytes # (auto) 1.3 10 ^3/uL (0-1.3); White Blood Cell 9.6 10^3/uL (4.4-10.8)
[2020-02-17 19:12] LABS: Basophils % (auto) 0.3 % (0.0-2.0); Eosinophils % (auto) 0.7 % (0.0-7.0); Lymphocytes # (auto) 0.6 10 ^3/uL (0.4-5.4); Lymphocytes % (auto) 6.4 % (10.0-50.0); Mean Corpuscular Hemoglobin 24.7 pg (28.0-32.0); Mean Corpuscular Volume 79.6 fL (80.0-100.0); Monocytes % (auto) 13.6 % (0.0-12.0); Neutrophils # (auto) 7.6 10 ^3/uL (1.6-8.6); Nucleated Red Blood Cells % 0.4 %; Platelet Count (auto) 204 10^3/uL (140-450); Red Blood Cells 3.52 10^6/uL (4.5-5.90); Red Cell Distribution Width 18.4 % (11.8-14.3)
[2020-02-17 22:32] LABS: Urine Bacteria NONE SEEN /hpf (None Seen); Urine Blood Negative /uL (Negative); Urine Hyaline Cast FEW /lpf (0 - 2); Urine Mucus FEW (None Seen); Urine Specific Gravity 1.021 (1.001-1.035); Urine WBC 1 /hpf (0 - 3)
[2020-02-18 04:22] LABS: Eosinophils # (auto) 0.1 10 ^3/uL (0-0.8); Hemoglobin 8.7 g/dL (13.5-17.5); Monocytes # (auto) 1.1 10 ^3/uL (0-1.3); Neutrophils # (auto) 7.5 10 ^3/uL (1.6-8.6); Nucleated Red Blood Cells % 0.4 %; Platelet Count (auto) 209 10^3/uL (140-450); Red Cell Distribution Width 19.2 % (11.8-14.3)
[2020-02-18 04:23] LABS: Basophils # (auto) 0 10 ^3/uL (0-0.2); Basophils % (auto) 0.4 % (0.0-2.0); Eosinophils % (auto) 1.1 % (0.0-7.0); Hematocrit 28.6 % (41.0-53.0); Lymphocytes # (auto) 0.5 10 ^3/uL (0.4-5.4); Lymphocytes % (auto) 5.7 % (10.0-50.0); Mean Corpuscular Hemoglobin 24.3 pg (28.0-32.0); Mean Corpuscular Hgb Conc. 30.5 g/dL (32.0-36.0); Mean Corpuscular Volume 79.6 fL (80.0-100.0); Monocytes % (auto) 11.9 % (0.0-12.0); Neutrophils % (auto) 80.9 % (37.0-80.0); Red Blood Cells 3.59 10^6/uL (4.5-5.90); White Blood Cell 9.3 10^3/uL (4.4-10.8)
[2020-02-18] MEDS: SODIUM CHLORIDE 0.9% 1,000 ML IV SCH (06:03)
[2020-02-18] MEDS: OCTREOTIDE ACETATE 500 MCG in SODIUM CHL 0.9% 99 ML IV SCH (06:03)
[2020-02-18] MEDS: CEFTRIAXONE SODIUM 2 GM in D5W 5% 50 ML IV SCH (10:11)
[2020-02-18] MEDS: PANTOPRAZOLE 40 MG/10 ML VIAL INJ IV SCH (10:11)
--- NOTE | 2020-02-18 11:30 | NUR ---
Admit from ER Patient stated he arrived on the floor at 1110. No report was given. No staff were alerted that the patient had arrived. Patient is alert and oriented. He was oriented to the unit, room, call light. Instructed to call if he needs anything. Bilateral upper bedrails are up. Bed in lowest position and locked. Telemetry #[id number].
[2020-02-18 11:46] VITALS: BP 103/71
[2020-02-18] MEDS ORDERED: PANT40T PO (12:32)
[2020-02-18] MEDS ORDERED: SUCR1TAB22 PO (12:32)
[2020-02-18] MEDS ORDERED: CIP500T PO (12:32)
[2020-02-18 13:00] VITALS: BP 103/71
--- NOTE | 2020-02-18 13:25 | NUR ---
SS - Home Health Pipe Layer Helper consult was placed for Home Health evaluation for safety. Patient states he lives with his and she helps take care of him. He said she is having a hard time since she is disabled. An order was placed for health social work professor. It is the weekend so there is no social work instructor in the building. Paged on-call SS.
--- NOTE | 2020-02-18 13:39 | NUR ---
JACKSON ROQUE Spoke with Cierra regarding home health. Will fax information (Order, Facesheet, H&P, and Progress Notes) to [facility] and [facility].
--- NOTE | 2020-02-18 14:51 | NUR ---
SENIOR EXAMINER WEEKEND Received a page from CRISTI menezes regarding home health order for safety evaluation, nurse aid and for patient to be refer to [facility]. Advised CRISTI Menezes to fax clinical information to [facility] and [facility]. Contact [facility], leaving a message regarding order for home health. Contact Zulma with [facility] [phone]. Per Zulam they will see patient within 24-48hrs upon d/c day.
--- NOTE | 2020-02-18 16:00 | NUR ---
Discharge Went over paperwork with patient. Removed 3 IV's intact, no problems. Removed telemetry box and send to ICU per hospital protocol. Prescriptions were sent to his pharmacy by the doctor. [place] and his is disabled and he has no way home. Contacted Data Control Clerk Supervisor for a taxi voucher.
--- NOTE | 2020-02-18 17:02 | NUR ---
[facility] was called and said it would be 45 minutes until pickup.
--- NOTE | 2020-02-18 18:22 | NUR ---
Pt left in taxi with all personal belongings.
[2020-02-18] MEDS ORDERED: PANTOPRAZOLE 40 MG TAB PO SCH (22:00)
== END 2020-02-18 18:15 | disposition home health service (06) ==
LOC: EDUNIT# 09:56 → ER 09:56 → EDBD 09:56 → OVERFLOW 09:57 → TELE-WESTW 02-18 11:40
PROVIDERS: ADMIT Internal Medicine; ATTEND Internal Medicine
PROC: 0W9G3ZZ Drainage of Peritoneal Cavity, Percutaneous Approach (ICD-10-PCS; principal; 2020-02-16)
PROC: 30233N1 Transfusion of Nonautologous Red Blood Cells into Peripheral Vein, Percutaneous Approach (ICD-10-PCS; 2020-02-16)
PROC: 06L38CZ Occlusion of Esophageal Vein with Extraluminal Device, Via Natural or Artificial Opening Endoscopic (ICD-10-PCS; 2020-02-17)
DX: K74.60 Unspecified cirrhosis of liver (principal); E11.9 Type 2 diabetes mellitus without complications; F17.210 Nicotine dependence, cigarettes, uncomplicated; I10 Essential (primary) hypertension; R18.8 Other ascites; I85.11 Secondary esophageal varices with bleeding; K76.6 Portal hypertension; K31.89 Other diseases of stomach and duodenum; Z82.0 Family history of epilepsy and other diseases of the nervous system; Z82.49 Family history of ischemic heart disease and other diseases of the circulatory system; Z83.3 Family history of diabetes mellitus; Z20.828 Contact with and (suspected) exposure to other viral communicable diseases; D62 Acute posthemorrhagic anemia
CPT/HCPCS: 10022; 36415; 43244; 71045; 76942; 80048; 80053; 81001; 82150; 83690; 84484; 85014; 85018; 85025; 85610; 85730; 86850; 86900; 86901; 86920; 87081; 87205; 89051; 93005; C9113; G0378; J0696; J2250; J7060

== ENCOUNTER 2020-02-29 14:14 | Inpatient (IN) | payer MEDICAID ==
[~2020-02-29] VITALS: Ht 177.8 cm; Wt 68.0 kg
[~2020-02-29 14:14] MED LIST changes: +CIP500T PO; +PANT40T PO; -PANT40TA2 PO
[2020-02-29 15:13] LABS: Basophils # (auto) 0.1 10 ^3/uL (0-0.2); Eosinophils # (auto) 0.1 10 ^3/uL (0-0.8); Lymphocytes # (auto) 0.5 10 ^3/uL (0.4-5.4); Mean Corpuscular Hgb Conc. 30.2 g/dL (32.0-36.0); Monocytes # (auto) 0.5 10 ^3/uL (0-1.3); Platelet Count (auto) 170 10^3/uL (140-450); White Blood Cell 7.6 10^3/uL (4.4-10.8)
[2020-02-29 15:14] LABS: Basophils % (auto) 1.1 % (0.0-2.0); Eosinophils % (auto) 1.1 % (0.0-7.0); Hematocrit 20.1 % (41.0-53.0); Lymphocytes % (auto) 6.4 % (10.0-50.0); Mean Corpuscular Volume 79.5 fL (80.0-100.0); Monocytes % (auto) 6.1 % (0.0-12.0); Neutrophils # (auto) 6.5 10 ^3/uL (1.6-8.6); Neutrophils % (auto) 85.3 % (37.0-80.0); Nucleated Red Blood Cells % 0.2 %; Red Blood Cells 2.53 10^6/uL (4.5-5.90)
--- NOTE | 2020-02-29 15:15 | NUR ---
PARACENTESIS DONE BY DR ONEAL IN ULTRASOUND. 5800 ML OF FLUID REMOVED. PT TOLERATED WELL. VSS 117/[id number]%.
[2020-02-29 15:36] LABS: Albumin 2.3 g/dL (3.4-5.0); Anion Gap 5 (5-15); Blood Urea Nitrogen 19 mg/dL (7-18); Calcium 8.2 mg/dL (8.5-10.1); Carbon Dioxide 24 mmol/L (21-32); Chloride 107 mmol/L (98-107); Glucose 227 mg/dL (74-106); Potassium 4.2 mmol/L (3.5-5.1); Sodium 136 mmol/L (136-145)
[2020-02-29 15:42] LABS: Alanine Aminotransferase 82 U/L (16-61); Alkaline Phosphatase 773 U/L (45-117); Aspartate Aminotransferase 195 U/L (15-37); BUN/Creatinine Ratio 28.8; Bilirubin, Total 0.4 mg/dL (0.2-1.0); GFR African American 158 mL/min; GFR Non-African American 131 mL/min; Total Protein 6.9 g/dL (6.4-8.2)
--- NOTE | 2020-02-29 15:51 | NUR ---
PT IN ULTRASOUND FOR A PARACENTESIS BY DR ONEAL. VSS 121/05-074-21-97% 5500 ML OF FLUID REMOVED. PT TOLERATED WELL.
[2020-02-29 16:10] LABS: Hemoglobin 6.1 g/dL (13.5-17.5); Red Cell Distribution Width 21.2 % (11.8-14.3)
[2020-02-29 17:06] LABS: INR 1.05 (0.9-1.15); Partial Thromboplastin Time 26.3 sec (23.0-31.2)
[2020-02-29] MEDS ORDERED: PANTOPRAZOLE 40 MG/10 ML VIAL INJ IV ONE (19:00)
[2020-02-29] MEDS ORDERED: MORPHINE SULF INJ 2 MG/ML SYRINGE 1ML IV PRN ×2 (19:00)
[2020-02-29] MEDS ORDERED: NITROGLYCERIN 0.4 MG SL TAB SL PRN (19:00)
[2020-02-29] MEDS ORDERED: traMADol HCL 50 MG TAB PO PRN (19:00)
[2020-02-29] MEDS ORDERED: DEXTROSE (50%) 50ML SYRG IV PRN (19:00)
[2020-02-29] MEDS ORDERED: PROMETHAZINE HCL 25 MG/ML 1ML IV PRN (19:00)
[2020-02-29 19:26] LABS: Amylase 39 U/L (25-115); Lipase 197 U/L (73-393)
[2020-02-29] MEDS: SODIUM CHLORIDE 0.9% 1,000 ML IV SCH (19:54)
[2020-02-29 21:40] VITALS: BP 105/71
[2020-02-29 21:55] VITALS: BP 100/65
[2020-02-29] MEDS: ACCU-CHEK COMFORT CURVE STRIP VI SCH (22:00)
[2020-02-29] MEDS: InsuLIN REG 1unit/0.01ml Soln (100units/ml) SC SCH (22:00)
[2020-02-29 22:10] VITALS: BP 100/65
[2020-02-29 22:25] VITALS: BP 109/70
[2020-02-29 23:00] VITALS: BP 113/72
[2020-02-29] MEDS: PANTOPRAZOLE 40 MG/10 ML VIAL INJ IV SCH (23:56)
[2020-03-01] VITALS (7 sets, daily range): BP systolic 95–125; BP diastolic 55–75
[2020-03-01 00:53] LABS: Hematocrit 22.7 % (41.0-53.0)
[2020-03-01] MEDS: SODIUM CHLORIDE 0.9% 1,000 ML IV SCH (03:09)
[2020-03-01] MEDS: ACCU-CHEK COMFORT CURVE STRIP VI SCH ×2 (06:52→11:36)
[2020-03-01] MEDS: InsuLIN REG 1unit/0.01ml Soln (100units/ml) SC SCH ×2 (06:52→11:30)
[2020-03-01 07:49] LABS: Hematocrit 25.6 % (41.0-53.0); Hemoglobin 8.2 g/dL (13.5-17.5)
[2020-03-01] MEDS: PANTOPRAZOLE 40 MG/10 ML VIAL INJ IV SCH (10:13)
[2020-03-01 12:09] LABS: Hematocrit 26.6 % (41.0-53.0)
[2020-03-01 12:10] LABS: Hemoglobin 8.4 g/dL (13.5-17.5)
== END 2020-03-01 13:56 | disposition home or self-care (01) | DRG 280 ==
LOC: EDBD 14:14 → ER 14:14 → TELE 14:15
PROVIDERS: ADMIT Internal Medicine; ATTEND Hospitalist
PROC: 0W9G3ZZ Drainage of Peritoneal Cavity, Percutaneous Approach (ICD-10-PCS; principal; 2020-02-29)
PROC: 30233N1 Transfusion of Nonautologous Red Blood Cells into Peripheral Vein, Percutaneous Approach (ICD-10-PCS; 2020-02-29)
DX: K70.31 Alcoholic cirrhosis of liver with ascites (principal); E11.9 Type 2 diabetes mellitus without complications; I10 Essential (primary) hypertension; F41.9 Anxiety disorder, unspecified; E78.5 Hyperlipidemia, unspecified; F32.9 Major depressive disorder, single episode, unspecified; F17.210 Nicotine dependence, cigarettes, uncomplicated; Z82.0 Family history of epilepsy and other diseases of the nervous system; Z83.3 Family history of diabetes mellitus; D63.8 Anemia in other chronic diseases classified elsewhere
CPT/HCPCS: 10022; 36415; 76700; 76942; 80053; 82150; 82962; 83036; 83690; 84484; 85014; 85018; 85025; 85045; 85610; 85730; 86850; 86900; 86901; 86920; C9113; G0378

== ENCOUNTER 2020-03-15 15:07 | Inpatient (IN) | payer MEDICAID ==
[~2020-03-15] VITALS: Ht 170.2 cm; Wt 27.3 kg
[2020-03-15 16:03] LABS: Basophils # (auto) 0 10 ^3/uL (0-0.2); Eosinophils # (auto) 0 10 ^3/uL (0-0.8); Monocytes # (auto) 0.6 10 ^3/uL (0-1.3)
[2020-03-15 16:05] LABS: Basophils % (auto) 0.4 % (0.0-2.0); Eosinophils % (auto) 0.2 % (0.0-7.0); Hematocrit 25.3 % (41.0-53.0); Hemoglobin 7.7 g/dL (13.5-17.5); Lymphocytes # (auto) 0.5 10 ^3/uL (0.4-5.4); Lymphocytes % (auto) 4.4 % (10.0-50.0); Mean Corpuscular Hgb Conc. 30.3 g/dL (32.0-36.0); Mean Corpuscular Volume 79.2 fL (80.0-100.0); Monocytes % (auto) 5.5 % (0.0-12.0); Neutrophils # (auto) 10.3 10 ^3/uL (1.6-8.6); Neutrophils % (auto) 89.5 % (37.0-80.0); Platelet Count (auto) 360 10^3/uL (140-450); White Blood Cell 11.5 10^3/uL (4.4-10.8)
[2020-03-15 16:11] LABS: Red Cell Distribution Width 21.4 % (11.8-14.3)
[2020-03-15 16:15] LABS: Albumin 1.9 g/dL (3.4-5.0); BUN/Creatinine Ratio 34.9; Calcium 8.3 mg/dL (8.5-10.1); Potassium 4.6 mmol/L (3.5-5.1)
[2020-03-15 16:21] LABS: INR 1.09 (0.9-1.15); Partial Thromboplastin Time 27.4 sec (23.0-31.2)
[2020-03-15 16:30] LABS: Bilirubin, Total 1.6 mg/dL (0.2-1.0); Total Protein 7.1 g/dL (6.4-8.2)
[2020-03-15] MEDS ORDERED: MORPHINE SULF INJ 2 MG/ML SYRINGE 1ML IV ONE (17:45)
[2020-03-15] MEDS ORDERED: cefTRIAXone 1GM/50ML D5W 50 ML IV ONE (18:15)
[2020-03-15] MEDS ORDERED: DEXTROSE (50%) 50ML SYRG IV PRN (18:30)
[2020-03-15] MEDS ORDERED: PANTOPRAZOLE 40 MG/10 ML VIAL INJ IV ONE (18:30)
[2020-03-15] MEDS ORDERED: MORPHINE SULF INJ 2 MG/ML SYRINGE 1ML IV PRN ×2 (18:30)
[2020-03-15] MEDS ORDERED: NITROGLYCERIN 0.4 MG SL TAB SL PRN (18:30)
[2020-03-15] MEDS: SODIUM CHLORIDE 0.9% 1,000 ML IV SCH (18:59)
--- NOTE | 2020-03-15 20:27 | NUR ---
Telemetry admit from ER NICKI BERRIOS admitted to Telemetry unit after SBAR received. Patient oriented to ASIA mendoza RN, unit, room, bed, and unit policies regarding patient care and visiting hours. Patient now on continuous telemetry monitoring, tele box # [id number] and telemetry reading on arrival to unit is NSR t 94bpm. Patient weighed by bedscale and encouraged to call if they need something. All questions and concerns addressed, patient verbalized understanding.
--- NOTE | 2020-03-15 21:00 | NUR ---
Medication Reconciliation Tomorrow Patient states he can not remember all of his medication, his can get a list tomorrow.
[2020-03-15] MEDS: ACCU-CHEK COMFORT CURVE STRIP VI SCH (21:30)
[2020-03-15] MEDS: InsuLIN REG 1unit/0.01ml Soln (100units/ml) SC SCH (21:30)
[2020-03-15] MEDS: metroNIDAZOLE 500MG/100ML 100 ML IV SCH (21:57)
[2020-03-15] MEDS: PROMETHAZINE HCL 25 MG/ML 1ML IV PRN (21:58)
[2020-03-15] MEDS: PANTOPRAZOLE 40 MG TAB PO SCH (21:58)
[2020-03-15] MEDS: MORPHINE SULF INJ 2 MG/ML SYRINGE 1ML IV PRN (21:58)
[2020-03-15 22:00] VITALS: BP 113/69
--- NOTE | 2020-03-16 01:13 | NUR ---
MRSA nares sent to lab via bullet system.
[2020-03-16 02:07] LABS: Hematocrit 25.4 % (41.0-53.0); Hemoglobin 7.9 g/dL (13.5-17.5)
--- NOTE | 2020-03-16 02:33 | NUR ---
IV removal from left hand due to leaking IV DC'd with clean sterile technique, catheter fully intact. Pressure dressing applied to site. Patient tolerated well. Patient is refusing a new IV at this time, requesting it be inserted in a couple hours.
[2020-03-16] MEDS: SODIUM CHLORIDE 0.9% 1,000 ML IV SCH (04:27)
[2020-03-16 05:00] VITALS: BP 118/74
--- NOTE | 2020-03-16 05:50 | NUR ---
IV insertion to RFA IV access obtained, via clean sterile technique by inserting 20 gauge catheter at RFA after 3 attempt(s). IV secured properly. No trauma to site. Patient tolerated well.
[2020-03-16] MEDS: metroNIDAZOLE 500MG/100ML 100 ML IV SCH ×2 (05:54→14:00)
[2020-03-16] MEDS: PROMETHAZINE HCL 25 MG/ML 1ML IV PRN (05:55)
[2020-03-16] MEDS: ACCU-CHEK COMFORT CURVE STRIP VI SCH ×2 (05:55→11:34)
[2020-03-16] MEDS: InsuLIN REG 1unit/0.01ml Soln (100units/ml) SC SCH ×2 (05:55→11:34)
[2020-03-16] MEDS: MORPHINE SULF INJ 2 MG/ML SYRINGE 1ML IV PRN (05:55)
[2020-03-16] MEDS ORDERED: HYDR-392 PO (06:52)
--- NOTE | 2020-03-16 07:30 | NUR ---
RECEIVED REPORT FROM NIGHT NURSE. PATIENT RESTING IN BED, NO DISTRESS NOTED. WILL CONTINUE TO MONITOR.
[2020-03-16 09:00] VITALS: BP 109/72
[2020-03-16] MEDS ORDERED: cefTRIAXone 1GM/50ML D5W 50 ML IV SCH (09:00)
[2020-03-16] MEDS: PANTOPRAZOLE 40 MG TAB PO SCH (10:06)
[2020-03-16 11:52] LABS: Hematocrit 26.2 % (41.0-53.0); Hemoglobin 7.9 g/dL (13.5-17.5)
[2020-03-16 12:05] LABS: Albumin 1.9 g/dL (3.4-5.0); Calcium 8.2 mg/dL (8.5-10.1); Potassium 4.5 mmol/L (3.5-5.1)
[2020-03-16 12:18] LABS: BUN/Creatinine Ratio 31.8; Bilirubin, Total 1.7 mg/dL (0.2-1.0); Total Protein 6.8 g/dL (6.4-8.2)
[2020-03-16 13:00] VITALS: BP 105/72
--- NOTE | 2020-03-16 16:12 | NUR ---
Discharge instructions given as ordered. Encourage to follow up with PMD as instructed. All questions and concerns addressed. Patient verbalized understanding. Medication reconciliation form completed and copy given to patient. Home medications held in Pharmacy returned to patient. IV removed with catheter intact, pressure dressing applied. Telemetry unit returned to ICU. Patient taken to [facility] via wheelchair with all personal belongings, accompanied by staff member. No distress noted at time of departure.
== END 2020-03-16 16:10 | disposition home or self-care (01) ==
LOC: ER 15:07 → EDBD 15:07 → TELE 15:08 → TELE-CENTR 20:23
PROVIDERS: ADMIT Internal Medicine; ATTEND Internal Medicine
PROC: 0W9G3ZZ Drainage of Peritoneal Cavity, Percutaneous Approach (ICD-10-PCS; principal; 2020-03-15)
DX: K74.60 Unspecified cirrhosis of liver (principal); D63.8 Anemia in other chronic diseases classified elsewhere; E78.5 Hyperlipidemia, unspecified; N17.0 Acute kidney failure with tubular necrosis; E86.0 Dehydration; F17.210 Nicotine dependence, cigarettes, uncomplicated; R18.8 Other ascites; E44.0 Moderate protein-calorie malnutrition; F32.9 Major depressive disorder, single episode, unspecified; F41.9 Anxiety disorder, unspecified; E11.21 Type 2 diabetes mellitus with diabetic nephropathy; E87.1 Hypo-osmolality and hyponatremia; E11.22 Type 2 diabetes mellitus with diabetic chronic kidney disease; I12.9 Hypertensive chronic kidney disease with stage 1 through stage 4 chronic kidney disease, or unspecified chronic kidney disease; N18.9 Chronic kidney disease, unspecified; K80.20 Calculus of gallbladder without cholecystitis without obstruction; D72.829 Elevated white blood cell count, unspecified; R62.7 Adult failure to thrive; R64 Cachexia; Z82.0 Family history of epilepsy and other diseases of the nervous system; Z83.3 Family history of diabetes mellitus; Z68.23 Body mass index [BMI] 23.0-23.9, adult
CPT/HCPCS: 10022; 36415; 71045; 76700; 76942; 80053; 82140; 82962; 83036; 83605; 85014; 85018; 85025; 85045; 85610; 85730; 87040; 87081; 87205; 93005; 99291; C9113; G0378; J0696; J1815; J3490

== ENCOUNTER 2020-03-23 10:55 | Inpatient (IN) | payer MEDICAID ==
[~2020-03-23] VITALS: Ht 170.2 cm; Wt 64.2 kg
[2020-03-23] VITALS (7 sets, daily range): BP systolic 91–114; BP diastolic 52–75
[~2020-03-23 10:55] MED LIST changes: +HYDR-392 PO
[2020-03-23 12:10] LABS: Hematocrit 21.7 % (41.0-53.0); Mean Corpuscular Hemoglobin 23.9 pg (28.0-32.0); Mean Corpuscular Hgb Conc. 29.8 g/dL (32.0-36.0); Mean Corpuscular Volume 80.3 fL (80.0-100.0); Platelet Count (auto) 298 10^3/uL (140-450)
[2020-03-23 12:11] LABS: Red Cell Distribution Width 23.1 % (11.8-14.3)
[2020-03-23 12:12] LABS: Hemoglobin 6.5 g/dL (13.5-17.5)
[2020-03-23 12:13] LABS: Basophils % (manual) 0 (0.0-2.0); Blast Cells 0; Eosinophils % (manual) 0 (0-7); Promyelocytes % 0; Reactive Lymphocytes 0
[2020-03-23 12:27] LABS: Albumin 1.7 g/dL (3.4-5.0); Anion Gap 12 (5-15); Blood Urea Nitrogen 76 mg/dL (7-18); Calcium 8.5 mg/dL (8.5-10.1); Carbon Dioxide 15 mmol/L (21-32); Chloride 102 mmol/L (98-107); Glucose 166 mg/dL (74-106); Sodium 129 mmol/L (136-145)
[2020-03-23 12:42] LABS: Alanine Aminotransferase 184 U/L (16-61); Alkaline Phosphatase 1503 U/L (45-117); Aspartate Aminotransferase 921 U/L (15-37); BUN/Creatinine Ratio 58.9; Bilirubin, Total 2.3 mg/dL (0.2-1.0); GFR African American 73 mL/min; GFR Non-African American 60 mL/min; Total Protein 6.7 g/dL (6.4-8.2)
[2020-03-23 13:08] LABS: Band Neutrophils % (manual) 3
[2020-03-23 13:13] LABS: Lymphocytes % (manual) 3 (10.0-50.0)
[2020-03-23 13:14] LABS: Metamyelocytes % 1; Monocytes % (manual) 3 (0-12); Myelocytes % 2
[2020-03-23 13:48] LABS: INR 1.13 (0.9-1.15)
[2020-03-23] MEDS ORDERED: SODIUM BICARBONATE 8.4% INJ 50ML SYRINGE IV ONE (14:00)
[2020-03-23] MEDS ORDERED: InsuLIN REG 1unit/0.01ml Soln (100units/ml) IV ONE (14:00)
[2020-03-23] MEDS ORDERED: DEXTROSE (50%) 50ML SYRG IV ONE (14:00)
[2020-03-23] MEDS ORDERED: SODIUM ZIRCONIUM CYCL 10 GM PAK PO ONE (14:30)
[2020-03-23] MEDS ORDERED: CALCIUM CHL 100MG/ML 1,000 MG in D5W 5% 100 ML IV ONE (14:30)
[2020-03-23] MEDS ORDERED: FUROSEMIDE 40 MG/4 ML VIAL IV ONE (14:30)
[2020-03-23] MEDS ORDERED: NITROGLYCERIN 0.4 MG SL TAB SL PRN ×2 (14:30→16:45)
[2020-03-23] MEDS ORDERED: MORPHINE SULF INJ 2 MG/ML SYRINGE 1ML IV PRN ×2 (14:30→16:45)
[2020-03-23] MEDS ORDERED: ONDANSETRON HCL 4 MG/2 ML VIAL IV PRN (16:45)
[2020-03-23] MEDS ORDERED: LORazepam 0.5 MG TAB PO PRN (16:45)
[2020-03-23] MEDS ORDERED: cefTRIAXone 1GM/50ML D5W 50 ML IV ONE (16:45)
[2020-03-23] MEDS ORDERED: DOCUSATE SOD 100 MG CAP PO PRN (16:45)
[2020-03-23] MEDS ORDERED: ALUM & MAG HYDROX-SIMETH LIQ(MAALOX) 30 ML PO PRN (16:45)
[2020-03-23] MEDS ORDERED: DEXTROSE (50%) 50ML SYRG IV PRN (16:45)
[2020-03-23] MEDS ORDERED: ALBUMIN 25% 50 ML IV ONE (17:00)
[2020-03-23] MEDS ORDERED: LACTULOSE 20Gm/30ML SOLN PO PRN (17:00)
[2020-03-23] MEDS: InsuLIN REG 1unit/0.01ml Soln (100units/ml) SC SCH ×2 (17:00→23:01)
[2020-03-23] MEDS: SUCRALFATE 1 GM TAB PO SCH ×2 (17:00→22:03)
[2020-03-23] MEDS: ACCU-CHEK COMFORT CURVE STRIP VI SCH ×2 (17:00→22:45)
[2020-03-23] MEDS: MORPHINE SULF INJ 2 MG/ML SYRINGE 1ML IV PRN (20:20)
[2020-03-23] MEDS: FERROUS SULFATE 325 MG TAB PO SCH (20:35)
[2020-03-23] MEDS: DOCUSATE SOD 100 MG CAP PO SCH (22:03)
[2020-03-23] MEDS: PROPRANOLOL HCL 20 MG TAB PO SCH (22:04)
[2020-03-23] MEDS: SODIUM ZIRCONIUM CYCL 10 GM PAK PO SCH (22:04)
[2020-03-23 22:28] LABS: Cholesterol 125 mg/dL (< 200); HDL Cholesterol 7 mg/dL (40-59); LDL Cholesterol 105 mg/dL (< 100); Triglycerides 143 mg/dL (< 150)
[2020-03-24] MEDS: ALBUMIN 25% 50 ML IV SCH ×3 (01:03→16:55)
[2020-03-24 01:23] LABS: Hematocrit 26.4 % (41.0-53.0); Hemoglobin 8.1 g/dL (13.5-17.5)
[2020-03-24] MEDS: MORPHINE SULF INJ 2 MG/ML SYRINGE 1ML IV PRN (01:39)
[2020-03-24 05:00] VITALS: BP 97/59
[2020-03-24] MEDS: InsuLIN REG 1unit/0.01ml Soln (100units/ml) SC SCH ×4 (06:54→22:00)
[2020-03-24] MEDS: SODIUM ZIRCONIUM CYCL 10 GM PAK PO SCH ×3 (06:54→22:14)
[2020-03-24] MEDS: ACCU-CHEK COMFORT CURVE STRIP VI SCH ×4 (06:54→22:05)
[2020-03-24] MEDS: SUCRALFATE 1 GM TAB PO SCH ×4 (07:03→22:13)
[2020-03-24 08:00] VITALS: BP 108/67
[2020-03-24] MEDS: cefTRIAXone 1GM/50ML D5W 50 ML IV SCH (08:06)
[2020-03-24] MEDS: FERROUS SULFATE 325 MG TAB PO SCH ×3 (08:06→17:28)
[2020-03-24 08:48] VITALS: BP 98/65
[2020-03-24] MEDS: DOCUSATE SOD 100 MG CAP PO SCH ×2 (10:00→22:14)
[2020-03-24] MEDS: PANTOPRAZOLE 40 MG TAB PO SCH (10:28)
[2020-03-24] MEDS: PROPRANOLOL HCL 20 MG TAB PO SCH ×2 (10:30→22:00)
[2020-03-24 11:51] LABS: Calcium 8.5 mg/dL (8.5-10.1)
[2020-03-24 11:52] LABS: Eosinophils # (auto) 0 10 ^3/uL (0-0.8); Eosinophils % (auto) 0.1 % (0.0-7.0); Mean Corpuscular Hemoglobin 25.7 pg (28.0-32.0); Nucleated Red Blood Cells % 0.1 %
[2020-03-24 11:54] LABS: Basophils # (auto) 0.1 10 ^3/uL (0-0.2); Basophils % (auto) 0.5 % (0.0-2.0); Hemoglobin 8.2 g/dL (13.5-17.5); Lymphocytes # (auto) 0.5 10 ^3/uL (0.4-5.4); Lymphocytes % (auto) 3.3 % (10.0-50.0); Mean Corpuscular Hgb Conc. 30.5 g/dL (32.0-36.0); Mean Corpuscular Volume 84.5 fL (80.0-100.0); Monocytes # (auto) 1.2 10 ^3/uL (0-1.3); Monocytes % (auto) 7.1 % (0.0-12.0); Platelet Count (auto) 233 10^3/uL (140-450); White Blood Cell 16.8 10^3/uL (4.4-10.8)
[2020-03-24 11:59] LABS: BUN/Creatinine Ratio 59.2
[2020-03-24 12:03] LABS: Red Cell Distribution Width 21.6 % (11.8-14.3)
[2020-03-24 12:10] LABS: Potassium 5.7 mmol/L (3.5-5.1)
[2020-03-24 12:40] VITALS: BP 103/72
[2020-03-24] MEDS: HYDROcodone-ACET 7.5/325MG TAB PO PRN ×2 (14:17→23:05)
[2020-03-24 16:37] VITALS: BP 89/47
[2020-03-24 22:00] VITALS: BP 96/63
[2020-03-25 05:38] VITALS: BP 91/58
[2020-03-25 05:54] LABS: Basophils # (auto) 0 10 ^3/uL (0-0.2); Basophils % (auto) 0.1 % (0.0-2.0); Eosinophils # (auto) 0 10 ^3/uL (0-0.8); Eosinophils % (auto) 0.2 % (0.0-7.0); Hemoglobin 8.3 g/dL (13.5-17.5); Lymphocytes # (auto) 0.4 10 ^3/uL (0.4-5.4); Monocytes # (auto) 1.1 10 ^3/uL (0-1.3)
[2020-03-25 05:57] LABS: Hematocrit 26.2 % (41.0-53.0); Lymphocytes % (auto) 2.9 % (10.0-50.0); Mean Corpuscular Hemoglobin 26.3 pg (28.0-32.0); Mean Corpuscular Hgb Conc. 31.8 g/dL (32.0-36.0); Mean Corpuscular Volume 82.6 fL (80.0-100.0); Monocytes % (auto) 6.9 % (0.0-12.0); Neutrophils # (auto) 13.9 10 ^3/uL (1.6-8.6); Neutrophils % (auto) 89.9 % (37.0-80.0); Nucleated Red Blood Cells % 0.1 %; Platelet Count (auto) 248 10^3/uL (140-450); Red Blood Cells 3.17 10^6/uL (4.5-5.90); White Blood Cell 15.5 10^3/uL (4.4-10.8)
[2020-03-25] MEDS: SODIUM ZIRCONIUM CYCL 10 GM PAK PO SCH ×2 (05:59→14:50)
[2020-03-25 06:00] LABS: Red Cell Distribution Width 22.7 % (11.8-14.3)
[2020-03-25 06:12] LABS: BUN/Creatinine Ratio 60.5; Calcium 8.2 mg/dL (8.5-10.1)
[2020-03-25 06:24] LABS: INR 1.14 (0.9-1.15)
[2020-03-25] MEDS: InsuLIN REG 1unit/0.01ml Soln (100units/ml) SC SCH ×3 (06:35→18:45)
[2020-03-25] MEDS: SUCRALFATE 1 GM TAB PO SCH ×3 (06:35→18:39)
[2020-03-25] MEDS: ACCU-CHEK COMFORT CURVE STRIP VI SCH ×3 (06:36→18:45)
[2020-03-25 08:30] VITALS: BP 89/67
[2020-03-25 08:45] VITALS: BP 89/67
[2020-03-25] MEDS: FERROUS SULFATE 325 MG TAB PO SCH ×3 (08:45→18:37)
[2020-03-25] MEDS: cefTRIAXone 1GM/50ML D5W 50 ML IV SCH (08:47)
[2020-03-25 09:20] VITALS: BP 120/60
[2020-03-25] MEDS ORDERED: fentaNYL CITRATE 100 MCG/2 ML VL IV ONE (10:00)
[2020-03-25] MEDS ORDERED: MIDAZOLAM HCL 1MG/1ML-2 ML VIAL IV ONE (10:00)
[2020-03-25] MEDS: PROPRANOLOL HCL 20 MG TAB PO SCH (10:30)
[2020-03-25] MEDS: PANTOPRAZOLE 40 MG TAB PO SCH (10:30)
[2020-03-25] MEDS: DOCUSATE SOD 100 MG CAP PO SCH (10:30)
[2020-03-25] MEDS ORDERED: LIDOCAINE 2%HCL (LOCAL ANESTH.) INJ 20ML MDV ONE ×2 (11:06→11:22)
[2020-03-25] MEDS ORDERED: diphenhdrAMINE HCL 50 MG/1 ML VL ONE (12:24)
[2020-03-25] MEDS ORDERED: LIDOCAINE VISCOUS 2% 15ML UD ONE (12:24)
[2020-03-25] MEDS ORDERED: SODIUM CHLORIDE LOCK 10 ML ONE (12:24)
[2020-03-25] MEDS ORDERED: MIDAZOLAM HCL 5 MG/ML-1ML VIAL ONE (12:24)
[2020-03-25] MEDS ORDERED: fentaNYL CITRATE 100 MCG/2 ML VL ONE (12:25)
[2020-03-25 17:00] VITALS: BP 141/68
== END 2020-03-25 20:45 | disposition hospice, home (50) ==
LOC: EDBD 10:55 → ER 10:55 → TELE 10:56 → TELE-WESTW 18:00
PROVIDERS: ADMIT Hospitalist; ATTEND Hospitalist
PROC: 30233N1 Transfusion of Nonautologous Red Blood Cells into Peripheral Vein, Percutaneous Approach (ICD-10-PCS; principal; 2020-03-23)
PROC: 06L38CZ Occlusion of Esophageal Vein with Extraluminal Device, Via Natural or Artificial Opening Endoscopic (ICD-10-PCS; 2020-03-25)
PROC: BW40ZZZ Ultrasonography of Abdomen (ICD-10-PCS; 2020-03-25)
PROC: 0W9G30Z Drainage of Peritoneal Cavity with Drainage Device, Percutaneous Approach (ICD-10-PCS; 2020-03-25)
PROC: 8E0W3EZ Fluorescence Guided Procedure of Trunk Region, Percutaneous Approach (ICD-10-PCS; 2020-03-25)
DX: K74.60 Unspecified cirrhosis of liver (principal); E43 Unspecified severe protein-calorie malnutrition; K72.90 Hepatic failure, unspecified without coma; K85.20 Alcohol induced acute pancreatitis without necrosis or infection; K76.6 Portal hypertension; E87.1 Hypo-osmolality and hyponatremia; R18.8 Other ascites; I27.20 Pulmonary hypertension, unspecified; E87.5 Hyperkalemia; C79.51 Secondary malignant neoplasm of bone; Z20.828 Contact with and (suspected) exposure to other viral communicable diseases; D63.8 Anemia in other chronic diseases classified elsewhere; E11.9 Type 2 diabetes mellitus without complications; F32.9 Major depressive disorder, single episode, unspecified; C22.9 Malignant neoplasm of liver, not specified as primary or secondary; R62.7 Adult failure to thrive; E78.5 Hyperlipidemia, unspecified; F41.9 Anxiety disorder, unspecified; K31.89 Other diseases of stomach and duodenum; K80.20 Calculus of gallbladder without cholecystitis without obstruction; G30.9 Alzheimer's disease, unspecified; F10.10 Alcohol abuse, uncomplicated; I85.10 Secondary esophageal varices without bleeding; F17.210 Nicotine dependence, cigarettes, uncomplicated; I10 Essential (primary) hypertension; K40.90 Unilateral inguinal hernia, without obstruction or gangrene, not specified as recurrent; Z81.8 Family history of other mental and behavioral disorders; Z83.3 Family history of diabetes mellitus; Z82.49 Family history of ischemic heart disease and other diseases of the circulatory system; Z86.19 Personal history of other infectious and parasitic diseases; Z82.3 Family history of stroke; Z79.4 Long term (current) use of insulin; Z79.899 Other long term (current) drug therapy; Z79.891 Long term (current) use of opiate analgesic; Z79.01 Long term (current) use of anticoagulants; Z79.84 Long term (current) use of oral hypoglycemic drugs; Z68.22 Body mass index [BMI] 22.0-22.9, adult
CPT/HCPCS: 10022; 36415; 43244; 71045; 74018; 74176; 76000; 76700; 76942; 80048; 80053; 80061; 82962; 83036; 83690; 83735; 84132; 84484; 85007; 85014; 85018; 85025; 85027; 85610; 85730; 86850; 86900; 86901; 86920; 87040; 87081; 87426; 93005; 99291; G0378; J0696; J1815; J2250; J7060

== ENCOUNTER 2020-03-27 22:51 | Emergency (ER) | payer MEDICAID ==
[~2020-03-27] VITALS: Ht 165.1 cm; Wt 72.6 kg
[2020-03-28] MEDS ORDERED: MORPHINE SULFATE 4 MG/ML SYR/VIAL IV ONE (01:00)
[2020-03-28] MEDS ORDERED: ONDANSETRON HCL 4 MG/2 ML VIAL IV ONE (01:00)
[2020-03-28 01:22] LABS: Urine Bacteria FEW /hpf (None Seen); Urine Blood Negative /uL (Negative); Urine Hyaline Cast MOD /lpf (0 - 2); Urine Mucus FEW (None Seen); Urine Specific Gravity 1.016 (1.001-1.035); Urine WBC 2 /hpf (0 - 3)
[2020-03-28 04:21] VITALS: BP 102/64
[2020-03-30] MEDS ORDERED: ETOMIDATE (2MG/ML) 20ML VIAL IV ONE (12:56)
[2020-03-30] MEDS ORDERED: SUCCINYLCHOLINE CHLORIDE 20 MG/ML 10ML VIAL IV ONE (12:56)
[2020-03-30] MEDS ORDERED: NOREPINEPHRINE 8 MG/250ML KIT 250 ML IV ONE (14:13)
== END 2020-03-28 05:20 | disposition home or self-care (01) ==
LOC: EDBD 22:51 → ER 22:51
DX: S30.1XXA Contusion of abdominal wall, initial encounter (principal); I10 Essential (primary) hypertension; E78.5 Hyperlipidemia, unspecified; E11.9 Type 2 diabetes mellitus without complications; F17.210 Nicotine dependence, cigarettes, uncomplicated; Z86.2 Personal history of diseases of the blood and blood-forming organs and certain disorders involving the immune mechanism; Z79.899 Other long term (current) drug therapy; Y08.89XA Assault by other specified means, initial encounter; Y93.89 Activity, other specified; Y92.89 Other specified places as the place of occurrence of the external cause; Y99.8 Other external cause status
CPT/HCPCS: 74176; 81001; 96374; 96375; 99285; J2270; J2405; J0330

== ENCOUNTER 2020-03-30 12:26 | Inpatient (IN) | payer MEDICAID ==
[~2020-03-30] VITALS: Ht 172.7 cm; Wt 60.8 kg
[2020-03-30] MEDS ORDERED: ETOMIDATE (2MG/ML) 20ML VIAL IV ONE (13:00)
[2020-03-30] MEDS ORDERED: SUCCINYLCHOLINE CHLORIDE 20 MG/ML 10ML VIAL IV ONE (13:00)
[2020-03-30] MEDS ORDERED: PANTOPRAZOLE 40 MG/10 ML VIAL INJ IV ONE (13:00)
[2020-03-30 13:15] VITALS: BP 77/30
[2020-03-30] MEDS ORDERED: OCTREOTIDE ACETATE 100 MCG in SODIUM CHL 0.9% 50 ML IV ONE (13:15)
[2020-03-30] MEDS ORDERED: PANTOPRAZOLE 40mg/50ML NS AE 50 ML IV ONE (13:15)
[2020-03-30 13:20] VITALS: BP 77/30
[2020-03-30 13:32] LABS: Platelet Count (auto) 226 10^3/uL (140-450); White Blood Cell 7.6 10^3/uL (4.4-10.8)
[2020-03-30 13:35] LABS: Hematocrit 21.4 % (41.0-53.0); Mean Corpuscular Hemoglobin 26.2 pg (28.0-32.0); Mean Corpuscular Hgb Conc. 31.2 g/dL (32.0-36.0); Mean Corpuscular Volume 83.9 fL (80.0-100.0); Red Blood Cells 2.55 10^6/uL (4.5-5.90)
[2020-03-30] MEDS: MIDAZOLAM DRIP 50 mg/50mL 50 ML IV SCH ×2 (13:35→13:50)
[2020-03-30 14:00] VITALS: BP 97/67
[2020-03-30 14:04] LABS: Red Cell Distribution Width 22.3 % (11.8-14.3)
[2020-03-30 14:05] LABS: Hemoglobin 6.7 g/dL (13.5-17.5)
[2020-03-30 14:06] LABS: Basophils % (manual) 0 (0.0-2.0); Blast Cells 0; Metamyelocytes % 0; Promyelocytes % 0; Reactive Lymphocytes 0
[2020-03-30 14:06] LABS: Urine Bacteria FEW /hpf (None Seen); Urine Blood Negative /uL (Negative); Urine Hyaline Cast FEW /lpf (0 - 2); Urine Specific Gravity 1.016 (1.001-1.035); Urine WBC 2 /hpf (0 - 3)
[2020-03-30] MEDS: NOREPINEPHRINE 8 MG/250ML KIT 250 ML IV SCH ×2 (14:18→14:55)
[2020-03-30 14:19] LABS: INR 1.11 (0.9-1.15); Partial Thromboplastin Time 27.8 sec (23.0-31.2)
[2020-03-30 14:21] LABS: Band Neutrophils % (manual) 1; Eosinophils % (manual) 1 (0-7); Lymphocytes % (manual) 11 (10.0-50.0); Monocytes % (manual) 2 (0-12); Myelocytes % 1
[2020-03-30 14:39] LABS: Alanine Aminotransferase 226 U/L (16-61); Albumin 1.7 g/dL (3.4-5.0); Anion Gap 16 (5-15); BUN/Creatinine Ratio 38.7; Calcium 6.8 mg/dL (8.5-10.1); Carbon Dioxide 12 mmol/L (21-32); Chloride 94 mmol/L (98-107); GFR African American 25 mL/min; GFR Non-African American 20 mL/min; Glucose 139 mg/dL (74-106); Magnesium 2.5 mg/dL (1.6-2.6); Sodium 122 mmol/L (136-145)
[2020-03-30 14:42] LABS: Bilirubin, Total 2.5 mg/dL (0.2-1.0); Total Protein 6.2 g/dL (6.4-8.2)
[2020-03-30] MEDS: OCTREOTIDE ACETATE 500 MCG in SODIUM CHL 0.9% 99 ML IV SCH (15:30)
[2020-03-30 16:15] VITALS: BP 100/59
[2020-03-30 17:19] LABS: Alkaline Phosphatase 2853 U/L (45-117)
[2020-03-30 17:20] LABS: Aspartate Aminotransferase 1464 U/L (15-37)
[2020-03-30 17:23] LABS: Blood Urea Nitrogen 128 mg/dL (7-18); Potassium 7.3 mmol/L (3.5-5.1)
[2020-03-30 18:20] VITALS: BP 93/56
[2020-03-30] MEDS ORDERED: MORPHINE SULFATE 4 MG/ML SYR/VIAL IV PRN (22:00)
[2020-03-30] MEDS ORDERED: MORPHINE SULF INJ 2 MG/ML SYRINGE 1ML ONE (22:03)
[2020-03-30] MEDS ORDERED: ONDANSETRON HCL 4 MG/2 ML VIAL IV PRN (22:30)
[2020-03-30 23:55] VITALS: BP 52/32
[2020-03-31] MEDS: OCTREOTIDE ACETATE 500 MCG in SODIUM CHL 0.9% 99 ML IV SCH ×2 (00:22→10:30)
[2020-03-31] MEDS: LORazepam 2MG/ML-1ML VIAL IV PRN ×2 (00:35→12:47)
[2020-03-31 00:46] VITALS: BP 52/32
[2020-03-31] MEDS ORDERED: MORPHINE SULFATE 4 MG/ML SYR/VIAL IV SCH (02:00)
[2020-03-31] MEDS: MORPHINE SULFATE 4 MG/ML SYR/VIAL IV PRN ×3 (04:18→16:34)
[2020-03-31 04:57] VITALS: BP 56/31
[2020-03-31 09:00] VITALS: BP 50/26
[2020-03-31 13:00] VITALS: BP 48/27
[2020-03-31 17:00] VITALS: BP 46/26
== END 2020-03-31 23:45 | disposition expired | DRG 279 ==
LOC: EDBD 12:26 → ER 12:26 → TELE 12:27 → TELE-CENTR 23:27
PROVIDERS: ADMIT Internal Medicine; ATTEND Internal Medicine
PROC: 5A1935Z Respiratory Ventilation, Less than 24 Consecutive Hours (ICD-10-PCS; principal; 2020-03-30)
PROC: 0BH17EZ Insertion of Endotracheal Airway into Trachea, Via Natural or Artificial Opening (ICD-10-PCS; 2020-03-30)
PROC: 30233N1 Transfusion of Nonautologous Red Blood Cells into Peripheral Vein, Percutaneous Approach (ICD-10-PCS; 2020-03-30)
PROC: 02HV33Z Insertion of Infusion Device into Superior Vena Cava, Percutaneous Approach (ICD-10-PCS; 2020-03-30)
DX: K72.90 Hepatic failure, unspecified without coma (principal); J96.00 Acute respiratory failure, unspecified whether with hypoxia or hypercapnia; I85.11 Secondary esophageal varices with bleeding; N17.9 Acute kidney failure, unspecified; K76.7 Hepatorenal syndrome; G93.41 Metabolic encephalopathy; E11.9 Type 2 diabetes mellitus without complications; F17.210 Nicotine dependence, cigarettes, uncomplicated; I10 Essential (primary) hypertension; K70.31 Alcoholic cirrhosis of liver with ascites; K76.6 Portal hypertension; Z51.5 Encounter for palliative care; Z66 Do not resuscitate; Z82.0 Family history of epilepsy and other diseases of the nervous system; Z82.49 Family history of ischemic heart disease and other diseases of the circulatory system; Z83.3 Family history of diabetes mellitus; F32.9 Major depressive disorder, single episode, unspecified; F41.9 Anxiety disorder, unspecified; D64.9 Anemia, unspecified; B19.20 Unspecified viral hepatitis C without hepatic coma
CPT/HCPCS: 36415; 36600; 71045; 80053; 81001; 82140; 82805; 83735; 83880; 84484; 85007; 85027; 85610; 85730; 86850; 86900; 86901; 86922; 87070; 87077; 87081; 87205; 93005; 94003; 99291; C9113; G0378; J0330; J2250